=== PATIENT | male | born 1950 | race Caucasian/White ===

== ENCOUNTER 2019-09-29 09:31 | Outpatient (CLI) | payer MEDICARE, SELFPAY ==
[2019-09-29 09:44] LABS: Basophils Absolute Auto 0.01 K/mm3 (0.00-0.10); Basophils Percent Auto 0.2 % (0.0-1.0); Eosinophils Absolute Auto 0.03 K/mm3 (0.02-0.50); Eosinophils Percent Auto 0.7 % (1.0-6.0); Hematocrit 37.3 % (37.0-46.0); Hemoglobin 13.2 g/dL (12.4-15.3); Immature Granulocyte Absolute 0.02 K/mm3 (0.00-0.00); Immature Granulocyte Percent A 0.4 % (0.0-0.0); Lymphocytes Absolute Auto 1.16 K/mm3 (1.10-4.50); Lymphocytes Percent Auto 26.1 % (18.0-42.0); Mean Corpuscular HGB Conc 35.4 g/dL (32.0-36.0); Mean Corpuscular Hemoglobin 34.6 pg (27.0-31.0); Mean Corpuscular Volume 97.9 fL (78.0-102.0); Mean Platelet Volume 9.6 fl (8.7-11.0); Monocytes Absolute Auto 0.63 K/mm3 (0.10-0.90); Monocytes Percent Auto 14.2 % (2.0-11.0); Neutrophils Absolute Auto 2.6 K/mm3 (1.7-7.2); Neutrophils Percent Auto 58.4 % (50.0-70.0); Platelet Count Result 145 K/mm3 (150-420); Red Blood Count 3.81 M/mm3 (4.70-6.10); Red Cell Distribution Width 13.3 % (11.6-14.4); White Blood Count 4.5 K/mm3 (4.8-10.8)
[2019-09-29 10:47] LABS: Erythrocyte Sedimentation Rate 28 mm/hr (0-20)
[2019-09-29 10:53] LABS: Alanine Aminotransferase 55 U/L (16-63); Albumin Level 4.3 g/dL (3.4-5.0); Alkaline Phosphatase 92 U/L (46-116); Anion Gap 13.3 mmol/L (7-16); Aspartate Amino Transferase 38 U/L (15-37); Bilirubin,Total 1.2 mg/dL (0.00-1.00); Blood Urea Nitrogen 14 mg/dL (7-18); Calcium 9.2 mg/dL (8.5-10.1); Carbon Dioxide 30 mmol/L (21-32); Chloride 101 mmol/L (98-108); Estimated Glomerular Filt Rate > 60; Glucose 99 mg/dL (70-99); Osmolality Calculated 290 mOsm/kg (285-295); Potassium 4.3 mmol/L (3.5-5.1); Sodium 140 mmol/L (136-145)
[2019-09-29 11:04] LABS: CRP < 0.2 mg/dL (0.0-0.9)
== END 2019-09-29 09:32 | disposition home or self-care (01) ==
PROVIDERS: PCP Internal Medicine
DX: M19.90 Unspecified osteoarthritis, unspecified site (principal); Z79.899 Other long term (current) drug therapy; M10.9 Gout, unspecified
CPT/HCPCS: 36415; 80053; 85025; 85652; 86140

== ENCOUNTER 2019-12-01 10:34 | Outpatient (CLI) | payer MEDICARE, SELFPAY ==
[2019-12-01 10:47] LABS: Basophils Absolute Auto 0.01 K/mm3 (0.00-0.10); Basophils Percent Auto 0.2 % (0.0-1.0); Eosinophils Absolute Auto 0.07 K/mm3 (0.02-0.50); Eosinophils Percent Auto 1.1 % (1.0-6.0); Hematocrit 37.4 % (37.0-46.0); Immature Granulocyte Absolute 0.03 K/mm3 (0.00-0.00); Immature Granulocyte Percent A 0.5 % (0.0-0.0); Lymphocytes Absolute Auto 0.68 K/mm3 (1.10-4.50); Lymphocytes Percent Auto 10.8 % (18.0-42.0); Mean Corpuscular HGB Conc 34.8 g/dL (32.0-36.0); Mean Corpuscular Hemoglobin 34.2 pg (27.0-31.0); Mean Corpuscular Volume 98.4 fL (78.0-102.0); Mean Platelet Volume 9.5 fl (8.7-11.0); Monocytes Absolute Auto 0.79 K/mm3 (0.10-0.90); Monocytes Percent Auto 12.6 % (2.0-11.0); Neutrophils Absolute Auto 4.7 K/mm3 (1.7-7.2); Neutrophils Percent Auto 74.8 % (50.0-70.0); Platelet Count Result 144 K/mm3 (150-420); Red Cell Distribution Width 12.4 % (11.6-14.4); White Blood Count 6.3 K/mm3 (4.8-10.8)
[2019-12-01 11:33] LABS: Alanine Aminotransferase 54 U/L (16-63); Albumin Level 3.8 g/dL (3.4-5.0); Alkaline Phosphatase 119 U/L (46-116); Anion Gap 9.4 mmol/L (7-16); Aspartate Amino Transferase 46 U/L (15-37); Blood Urea Nitrogen 13 mg/dL (7-18); CRP 1.9 mg/dL (0.0-0.9); Calcium 8.9 mg/dL (8.5-10.1); Carbon Dioxide 31 mmol/L (21-32); Chloride 99 mmol/L (98-108); Estimated Glomerular Filt Rate > 60; Glucose 103 mg/dL (70-99); Osmolality Calculated 280 mOsm/kg (285-295); Potassium 4.4 mmol/L (3.5-5.1); Sodium 135 mmol/L (136-145); Total Protein 6.8 g/dL (6.4-8.2); Uric Acid 4.4 mg/dL (3.5-7.2)
[2019-12-01 11:46] LABS: Erythrocyte Sedimentation Rate 50 mm/hr (0-20)
== END 2019-12-01 10:35 | disposition home or self-care (01) ==
LOC: CHSLAB 10:37
PROVIDERS: PCP Internal Medicine
DX: M19.90 Unspecified osteoarthritis, unspecified site (principal); Z79.899 Other long term (current) drug therapy; M10.9 Gout, unspecified
CPT/HCPCS: 36415; 80053; 84550; 85025; 85652; 86140

== ENCOUNTER 2019-12-30 09:10 | Outpatient (CLI) | payer MEDICARE, SELFPAY ==
[2019-12-30 11:02] LABS: Alanine Aminotransferase 48 U/L (16-63); Albumin Level 3.8 g/dL (3.4-5.0); Alkaline Phosphatase 128 U/L (46-116); Anion Gap 10 mmol/L (8-16); Aspartate Amino Transferase 32 U/L (15-37); Bilirubin,Total 1.1 mg/dL (0.00-1.00); Blood Urea Nitrogen 15 mg/dL (7-18); Calcium 9.3 mg/dL (8.5-10.1); Carbon Dioxide 28 mmol/L (21-32); Chloride 101 mmol/L (98-108); Estimated Glomerular Filt Rate > 60; Glucose 96 mg/dL (70-99); Osmolality Calculated 288 mOsm/kg (285-295); Potassium 4.1 mmol/L (3.5-5.1); Sodium 139 mmol/L (136-145); Total Protein 7.1 g/dL (6.4-8.2)
== END 2019-12-30 09:11 | disposition home or self-care (01) ==
LOC: CHSLAB 09:14
PROVIDERS: PCP Internal Medicine
DX: R74.8 Abnormal levels of other serum enzymes (principal)
CPT/HCPCS: 36415; 80053

== ENCOUNTER 2020-03-10 13:53 | Outpatient (CLI) | payer MEDICARE, SELFPAY ==
[2020-03-10 14:06] LABS: Basophils Absolute Auto 0.01 K/mm3 (0.00-0.10); Basophils Percent Auto 0.2 % (0.0-1.0); Eosinophils Absolute Auto 0.04 K/mm3 (0.02-0.50); Eosinophils Percent Auto 0.8 % (1.0-6.0); Hemoglobin 12.6 g/dL (12.4-15.3); Immature Granulocyte Absolute 0.02 K/mm3 (0.00-0.00); Immature Granulocyte Percent A 0.4 % (0.0-0.0); Lymphocytes Absolute Auto 1.37 K/mm3 (1.10-4.50); Lymphocytes Percent Auto 28.7 % (18.0-42.0); Mean Corpuscular Volume 94.2 fL (78.0-102.0); Mean Platelet Volume 9.5 fl (8.7-11.0); Monocytes Absolute Auto 0.64 K/mm3 (0.10-0.90); Monocytes Percent Auto 13.4 % (2.0-11.0); Neutrophils Absolute Auto 2.7 K/mm3 (1.7-7.2); Neutrophils Percent Auto 56.5 % (50.0-70.0); Platelet Count Result 150 K/mm3 (150-420); Red Blood Count 3.82 M/mm3 (4.70-6.10); Red Cell Distribution Width 12.4 % (11.6-14.4); White Blood Count 4.8 K/mm3 (4.8-10.8)
[2020-03-10 14:35] LABS: Alanine Aminotransferase 41 U/L (16-63); Alkaline Phosphatase 109 U/L (46-116); Anion Gap 8 mmol/L (8-16); Aspartate Amino Transferase 28 U/L (15-37); Bilirubin,Total 0.8 mg/dL (0.00-1.00); Blood Urea Nitrogen 17 mg/dL (7-18); Calcium 8.9 mg/dL (8.5-10.1); Carbon Dioxide 27 mmol/L (21-32); Chloride 103 mmol/L (98-108); Estimated Glomerular Filt Rate > 60; Glucose 114 mg/dL (70-99); Osmolality Calculated 288 mOsm/kg (285-295); Potassium 3.8 mmol/L (3.5-5.1); Sodium 138 mmol/L (136-145); Total Protein 6.8 g/dL (6.4-8.2); Uric Acid 4.7 mg/dL (3.5-7.2)
[2020-03-10 14:44] LABS: CRP < 0.2 mg/dL (0.0-0.9)
[2020-03-10 15:14] LABS: Erythrocyte Sedimentation Rate 33 mm/hr (0-20)
== END 2020-03-10 13:54 | disposition home or self-care (01) ==
LOC: CHSLAB 13:57
PROVIDERS: PCP Internal Medicine; Visit Provider Registered Nurse
DX: M19.90 Unspecified osteoarthritis, unspecified site (principal); Z79.899 Other long term (current) drug therapy; M10.9 Gout, unspecified
CPT/HCPCS: 36415; 80053; 84550; 85025; 85652; 86140

== ENCOUNTER 2020-04-04 11:05 | Outpatient (CLI) | payer MEDICARE, SELFPAY ==
[2020-04-05 14:04] LABS: SARS-CoV-2 RNA PCR Positive
== END 2020-04-04 11:06 | disposition home or self-care (01) ==
LOC: CHSLAB 11:09
PROVIDERS: PCP Internal Medicine; Visit Provider Internal Medicine
DX: U07.1 COVID-19 (principal)
CPT/HCPCS: 87635; C9803; U0003

== ENCOUNTER 2020-05-30 09:46 | Outpatient (CLI) | payer MEDICARE, SELFPAY ==
[2020-05-30 10:05] LABS: Basophils Absolute Auto 0.01 K/mm3 (0.00-0.10); Basophils Percent Auto 0.2 % (0.0-1.0); Eosinophils Absolute Auto 0.06 K/mm3 (0.02-0.50); Eosinophils Percent Auto 1.3 % (1.0-6.0); Hematocrit 37.5 % (37.0-46.0); Hemoglobin 12.7 g/dL (12.4-15.3); Immature Granulocyte Absolute 0.03 K/mm3 (0.00-0.00); Immature Granulocyte Percent A 0.7 % (0.0-0.0); Lymphocytes Absolute Auto 1.06 K/mm3 (1.10-4.50); Lymphocytes Percent Auto 23.1 % (18.0-42.0); Mean Corpuscular HGB Conc 33.9 g/dL (32.0-36.0); Mean Corpuscular Hemoglobin 32.1 pg (27.0-31.0); Mean Corpuscular Volume 94.7 fL (78.0-102.0); Mean Platelet Volume 9.3 fl (8.7-11.0); Monocytes Absolute Auto 0.62 K/mm3 (0.10-0.90); Monocytes Percent Auto 13.5 % (2.0-11.0); Neutrophils Absolute Auto 2.8 K/mm3 (1.7-7.2); Neutrophils Percent Auto 61.2 % (50.0-70.0); Platelet Count Result 146 K/mm3 (150-420); Red Blood Count 3.96 M/mm3 (4.70-6.10); Red Cell Distribution Width 13.4 % (11.6-14.4); White Blood Count 4.6 K/mm3 (4.8-10.8)
[2020-05-30 11:04] LABS: Alanine Aminotransferase 63 U/L (16-63); Albumin Level 4.2 g/dL (3.4-5.0); Alkaline Phosphatase 97 U/L (46-116); Anion Gap 7 mmol/L (8-16); Aspartate Amino Transferase 29 U/L (15-37); Bilirubin,Total 1.3 mg/dL (0.00-1.00); Blood Urea Nitrogen 19 mg/dL (7-18); Calcium 9.1 mg/dL (8.5-10.1); Carbon Dioxide 30 mmol/L (21-32); Chloride 101 mmol/L (98-108); Estimated Glomerular Filt Rate > 60; Glucose 103 mg/dL (70-99); Osmolality Calculated 288 mOsm/kg (285-295); Potassium 4.4 mmol/L (3.5-5.1); Sodium 138 mmol/L (136-145); Total Protein 7.3 g/dL (6.4-8.2); Uric Acid 4.6 mg/dL (3.5-7.2)
[2020-05-30 11:08] LABS: Erythrocyte Sedimentation Rate 25 mm/hr (0-20)
[2020-05-30 11:12] LABS: CRP < 0.2 mg/dL (0.0-0.9)
== END 2020-05-30 09:47 | disposition home or self-care (01) ==
LOC: CHSLAB 09:48
PROVIDERS: PCP Internal Medicine; Visit Provider Registered Nurse
DX: M19.90 Unspecified osteoarthritis, unspecified site (principal); Z79.899 Other long term (current) drug therapy; R61 Generalized hyperhidrosis; R53.83 Other fatigue
CPT/HCPCS: 36415; 80053; 84550; 85025; 85652; 86140

== ENCOUNTER 2020-11-14 14:56 | Outpatient (CLI) | payer MEDICARE, SELFPAY ==
[2020-11-14 15:07] LABS: Basophils Absolute Auto 0.01 K/mm3 (0.00-0.10); Basophils Percent Auto 0.2 % (0.0-1.0); Eosinophils Absolute Auto 0.06 K/mm3 (0.02-0.50); Eosinophils Percent Auto 1.2 % (1.0-6.0); Hematocrit 35.9 % (37.0-46.0); Hemoglobin 12.7 g/dL (12.4-15.3); Immature Granulocyte Absolute 0.03 K/mm3 (0.00-0.00); Immature Granulocyte Percent A 0.6 % (0.0-0.0); Lymphocytes Absolute Auto 1.44 K/mm3 (1.10-4.50); Lymphocytes Percent Auto 29.1 % (18.0-42.0); Mean Corpuscular HGB Conc 35.4 g/dL (32.0-36.0); Mean Corpuscular Hemoglobin 33.5 pg (27.0-31.0); Mean Corpuscular Volume 94.7 fL (78.0-102.0); Mean Platelet Volume 9.7 fl (8.7-11.0); Monocytes Absolute Auto 0.74 K/mm3 (0.10-0.90); Monocytes Percent Auto 14.9 % (2.0-11.0); Neutrophils Absolute Auto 2.7 K/mm3 (1.7-7.2); Platelet Count Result 144 K/mm3 (150-420); Red Blood Count 3.79 M/mm3 (4.70-6.10); Red Cell Distribution Width 11.8 % (11.6-14.4)
[2020-11-14 16:39] LABS: Alanine Aminotransferase 41 U/L (16-63); Albumin Level 3.9 g/dL (3.4-5.0); Alkaline Phosphatase 104 U/L (46-116); Anion Gap 10 mmol/L (8-16); Aspartate Amino Transferase 27 U/L (15-37); Bilirubin,Total 0.8 mg/dL (0.00-1.00); Blood Urea Nitrogen 20 mg/dL (7-18); Calcium 9.2 mg/dL (8.5-10.1); Carbon Dioxide 29 mmol/L (21-32); Chloride 101 mmol/L (98-108); Estimated Glomerular Filt Rate > 60; Glucose 97 mg/dL (70-99); Osmolality Calculated 292 mOsm/kg (285-295); Potassium 3.7 mmol/L (3.5-5.1); Sodium 140 mmol/L (136-145); Total Protein 6.8 g/dL (6.4-8.2); Uric Acid 4.6 mg/dL (3.5-7.2)
[2020-11-14 16:50] LABS: CRP < 0.2 mg/dL (0.0-0.9)
== END 2020-11-14 14:57 | disposition home or self-care (01) ==
LOC: CHSLAB 14:59
PROVIDERS: PCP Internal Medicine; Visit Provider Internal Medicine
DX: D61.818 Other pancytopenia (principal); M10.9 Gout, unspecified
CPT/HCPCS: 36415; 80053; 84550; 85025; 86140

== ENCOUNTER 2020-12-12 10:11 | Outpatient (CLI) | payer MEDICARE, SELFPAY ==
[2020-12-12 10:25] LABS: Basophils Absolute Auto 0.01 K/mm3 (0.00-0.10); Basophils Percent Auto 0.2 % (0.0-1.0); Eosinophils Absolute Auto 0.06 K/mm3 (0.02-0.50); Eosinophils Percent Auto 1.3 % (1.0-6.0); Hematocrit 39.6 % (37.0-46.0); Hemoglobin 13.8 g/dL (12.4-15.3); Immature Granulocyte Absolute 0.02 K/mm3 (0.00-0.00); Immature Granulocyte Percent A 0.4 % (0.0-0.0); Lymphocytes Absolute Auto 1.17 K/mm3 (1.10-4.50); Lymphocytes Percent Auto 25.4 % (18.0-42.0); Mean Corpuscular HGB Conc 34.8 g/dL (32.0-36.0); Mean Corpuscular Hemoglobin 33.1 pg (27.0-31.0); Mean Platelet Volume 9.6 fl (8.7-11.0); Monocytes Absolute Auto 0.68 K/mm3 (0.10-0.90); Monocytes Percent Auto 14.8 % (2.0-11.0); Neutrophils Absolute Auto 2.7 K/mm3 (1.7-7.2); Neutrophils Percent Auto 57.9 % (50.0-70.0); Platelet Count Result 154 K/mm3 (150-420); Red Blood Count 4.17 M/mm3 (4.70-6.10); White Blood Count 4.6 K/mm3 (4.8-10.8)
== END 2020-12-12 10:12 | disposition home or self-care (01) ==
LOC: CHSLAB 10:14
PROVIDERS: PCP Internal Medicine; Visit Provider Internal Medicine
DX: D64.9 Anemia, unspecified (principal)
CPT/HCPCS: 36415; 85025

== ENCOUNTER 2021-01-09 09:27 | Outpatient (CLI) | payer MEDICARE, SELFPAY ==
[2021-01-09 09:41] LABS: Basophils Absolute Auto 0.01 K/mm3 (0.00-0.10); Basophils Percent Auto 0.2 % (0.0-1.0); Eosinophils Absolute Auto 0.03 K/mm3 (0.02-0.50); Eosinophils Percent Auto 0.5 % (1.0-6.0); Hematocrit 39.5 % (37.0-46.0); Hemoglobin 13.6 g/dL (12.4-15.3); Immature Granulocyte Absolute 0.02 K/mm3 (0.00-0.00); Immature Granulocyte Percent A 0.4 % (0.0-0.0); Immature Platelet Fraction Pct 2.3 % (1.0-7.0); Lymphocytes Absolute Auto 1.12 K/mm3 (1.10-4.50); Lymphocytes Percent Auto 19.7 % (18.0-42.0); Mean Corpuscular HGB Conc 34.4 g/dL (32.0-36.0); Mean Corpuscular Hemoglobin 32.3 pg (27.0-31.0); Mean Corpuscular Volume 93.8 fL (78.0-102.0); Mean Platelet Volume 9.3 fl (8.7-11.0); Monocytes Absolute Auto 0.72 K/mm3 (0.10-0.90); Monocytes Percent Auto 12.7 % (2.0-11.0); Neutrophils Absolute Auto 3.8 K/mm3 (1.7-7.2); Neutrophils Percent Auto 66.5 % (50.0-70.0); Platelet Count Result 153 K/mm3 (150-420); Red Blood Count 4.21 M/mm3 (4.70-6.10); Red Cell Distribution Width 11.9 % (11.6-14.4); White Blood Count 5.7 K/mm3 (4.8-10.8)
[2021-01-09 11:02] LABS: CRP < 0.2 mg/dL (0.0-0.9)
== END 2021-01-09 09:28 | disposition home or self-care (01) ==
LOC: CHSLAB 09:30
PROVIDERS: PCP Internal Medicine; Visit Provider Internal Medicine
DX: D72.819 Decreased white blood cell count, unspecified (principal)
CPT/HCPCS: 36415; 85025; 85055; 86140

== ENCOUNTER 2021-10-11 13:49 | Outpatient (CLI) | payer MEDICARE, SELFPAY ==
[2021-10-11 14:14] LABS: Estimated Glomerular Filt Rate > 60
== END 2021-10-11 13:50 | disposition home or self-care (01) ==
LOC: CHSLAB 13:55
PROVIDERS: PCP Internal Medicine; Visit Provider Nurse Practitioner Family
DX: R10.9 Unspecified abdominal pain (principal); K42.9 Umbilical hernia without obstruction or gangrene
CPT/HCPCS: 99199

== ENCOUNTER 2021-10-12 07:24 | Outpatient (CLI) | payer MEDICARE, SELFPAY ==
--- NOTE | ~2021-10-12 | CT_ITS ---
EXAMINATION: CT abdomen pelvis w con DATE: 10/12/2021 08:24 INDICATION: Abdominal discomfort and outpouching at the umbilical area TECHNIQUE: Computed tomography (CT) of the abdomen and pelvis was performed with 100 mL Omnipaque-300 intravenous contrast. Automated exposure control and iterative reconstruction technique were employe d. The dose-length product was 1027.24 mGy-cm. COMPARISON: 12/26/2017 FINDINGS: Calcified pleural plaques and mild subpleural fibrosis at the bilateral lung bases suggesting prior a sbestos exposure. Unchanged 4 mm granuloma in the left lower lobe. Heart size is normal. Atherosclero tic coronary artery calcification. Liver, gallbladder, spleen, pancreas, bilateral kidneys and left a drenal gland are normal. 10 mm left adrenal nodule unchanged since the prior study which be most cons istent with adenoma. Small fat-containing umbilical hernia. There is moderate colonic diverticulosis with a sigmoid and descending colon predominance. There is no adjacent inflammatory change to suggest diverticulitis. Small bowel is normal with no obstruction. Tiny calcified appendicolith within the normal appendix with no periappendiceal inflammatory stranding to suggest acute appendicitis. Diffuse wall thickening the bladder likely related to chronic outlet obstruction from the enlarged prostate which measures 5.9 x 4.3 cm. Couple punctate 1 mm calcifications potentially bladder stones along the inferior wall of the bladder. There is calcified atherosclerosis of the aorta and many of the other arteries. No free intraperitoneal gas or fluid. No pathologically enlarged abdominal or pelvic lympha denopathy. Unchanged small lucent hemangioma at T9. Mild lumbar and moderate lower thoracic spondylos is. Chronic Modic type III sclerotic endplate changes at L5-S1. IMPRESSION: 1. No acute intra-abdominal/pelvic process. 2. Small, previously tiny fat-containing umbilical hernia. 3. Bilateral calcified pleural plaques with minimal subpleural fibrosis suggesting prior asbestos exp osure. 4. Moderate diverticulosis. 5. Diffuse wall thickening of the bladder likely related to chronic outlet obstruction from the enlar ged prostate. Reviewed, dictated and finalized at location B. IMPRESSION: 1. No acute intra-abdominal/pelvic process. 2. Small, previously tiny fat-containing umbilical hernia. 3. Bilateral calcified pleural plaques with minimal subpleural fibrosis suggest ing prior asbestos exposure. 4. Moderate diverticulosis. 5. Diffuse wall thickening of the bladder likely related to chronic outlet obst ruction from the enlarged prostate.
== END 2021-10-12 07:25 | disposition home or self-care (01) ==
LOC: CHSIMG 07:26
PROVIDERS: PCP Internal Medicine; Visit Provider Nurse Practitioner Family
DX: R10.9 Unspecified abdominal pain (principal); K42.9 Umbilical hernia without obstruction or gangrene
CPT/HCPCS: 74177; Q9967

== ENCOUNTER 2021-11-05 10:01 | Outpatient (CLI) | payer MEDICARE, SELFPAY ==
[2021-11-05 10:27] LABS: Anion Gap 6 mmol/L (8-16); Blood Urea Nitrogen 16 mg/dL (7-18); Calcium 9.3 mg/dL (8.5-10.1); Carbon Dioxide 29 mmol/L (21-32); Chloride 100 mmol/L (98-108); Estimated Glomerular Filt Rate > 60; Glucose 98 mg/dL (70-99); Osmolality Calculated 281 mOsm/kg (285-295); Sodium 135 mmol/L (136-145)
== END 2021-11-05 10:02 | disposition home or self-care (01) ==
LOC: CHSLAB 10:03
PROVIDERS: PCP Internal Medicine; Visit Provider Anesthesiology
DX: K42.9 Umbilical hernia without obstruction or gangrene (principal); I10 Essential (primary) hypertension
CPT/HCPCS: 36415; 80048

== ENCOUNTER 2021-11-14 03:04 | Day surgery (SDC) | payer MEDICARE, SELFPAY ==
--- NOTE | 2021-11-02 13:45 | PC.NURSE ---
Report to the Outpatient Waiting Room, entrance under the green pavilion located off [facility], at time _0930 on date __11/14/21 . OR Time: __1130 . - You and your visitor will be asked a series of questions to screen for COVID 19 for your protection. - Only one visitor is allowed at this time. - The patient visitor is requested to leave or wait in car when not with patient. - A mask is required within the hospital. Patients may have clear liquids (water, carbonated beverages, clear teas, apple juice) until 3 hours prior to surgery with a maximum of 20 ounces. - No food from midnight until time of surgery - Infants may have breast milk until 4 hours before surgery, infant formula 6 hours prior to surgery. - Children will be allowed to drink immediately following surgery. If applicable, please bring a bottle or sippy cup to assist with drinking. Juice, water, soda, and popsicles are readily available. For infants on formula, please bring formula the day of surgery. Pacifiers are allowed. Take the following medications with a SIP of water the morning of surgery: ____NONE Medications to discontinue per physician MULTIVITMAIN 3 DAYS PRE OP Date to take last dose__11/10/21 Please no make-up, nail maori, hairspray, perfume, deodorant, or body powder the day of surgery. No jewelry (including any body piercings) or valuables the day of surgery, leave them at home. Please take a shower or bath the night before, or the morning of, surgery with an antibacterial soap. Wear comfortable, loose fitting clothing. Children are encouraged to wear pajamas. - Jewelry must be removed prior to entering the operating room. Rings and piercings that are not removed may be cut off. - The hospital will not accept responsibility for valuables. HIBICLENS SHOWER MORNING OF SURGERY - Please leave all valuables, including medications, at home the day of surgery. If you are going home after surgery, a licensed motor coach driver must drive you home. - NO public transportation without another adult. - We recommend that an adult stay with you for 24 hours following discharge. - We also recommend that you do not drive, make important decision, drink alcoholic beverages, or take any drugs that were not prescribed by your health care provider for at least 24 hours after your discharge time. For Pediatric surgeries, we recommend two adults accompany the child home (only one inside the building at this time). Follow any additional instructions given to you from your surgeon. If you or anyone in your household have experienced Covid symptoms in the past week, please notify your surgeon or the nurse liaison at the phone number below for possible testing. Telephone instructions given to _PATIENT and asked if any additional questions and then verbalized understanding. Patient advised to call surgeon office or pre surgery nurse liaison [phone] if any additional questions.
[2021-11-02 13:51] VITALS: BMI 31.0
[2021-11-14] MEDS: ACETAMINOPHEN 500 MG TABLET 1000 MG PO (08:31)
--- NOTE | 2021-11-14 08:42 | WPDHPUPDATE1 ---
History and Physical Update Update Date/Time: 11/14/21 08:42 History and Physical has been reviewed, including an updated exam of the patient. There are NO changes in the patient's condition. Risks, benefits, and alternatives have been discussed and questions answered. Patient agrees to proceed with procedure.
--- NOTE | 2021-11-14 08:54 | WPDHPUPDATE1 ---
History and Physical Update Update Date/Time: 11/14/21 08:54 History and Physical has been reviewed, including an updated exam of the patient. There are NO changes in the patient's condition. Risks, benefits, and alternatives have been discussed and questions answered. Patient agrees to proceed with procedure.
[2021-11-14] MEDS: LACTATED RINGERS 1,000 ML 30 ML IV CONT (09:18)
[2021-11-14] MEDS: KETOROLAC 15 MG/ML VIAL (*BKC) IV PUSH (09:19)
[2021-11-14 09:20] VITALS: BP 140/78; PULSE 63; RESP 16; TEMP 36.4; O2SAT 100
[2021-11-14] MEDS: ceFAZolin 2 GM/D5W 50 ML 2 GM/50 ML BAG IVPB (10:04)
[2021-11-14] MEDS: LIDO 1%/EPINEPHRINE/PF 1:200,000 30 ML VIAL XX (10:31)
[2021-11-14 10:58] VITALS: BP 104/59; PULSE 61; RESP 16; O2SAT 97
--- NOTE | 2021-11-14 10:59 | W.PM.PROC2 ---
Procedure Note - Detailed Date of Procedure 11/14/21 Pre-op Diagnosis Umbilical Hernia Post-op Diagnosis Same Procedure Performed Umbilical hernia repair with 4.[address] underlay patch Surgeon Fracisco Machado MD Implementation Project Coordinator Chidi ESQUIVEL Anesthesia General (G IV S) and Local (1% lidocaine with epinephrine) Indications Patient has a bulge at the upper margin of his umbilicus that has been getting bigger. It is occasionally painful. He is taken to surgery now for umbilical hernia repair. Findings Patient had a 1 cm defect Description of Procedure Patient was checked in the preoperative holding area. He was then taken to surgery and anesthesia was introduced. The abdomen was prepped and draped. The proposed incision was marked along the upper margin of the umbilicus. Local anesthetic was infiltrated into the area of the anticipated incision as well as in the subcutaneous tissues. Incision was made dissection was carried down through the subcutaneous. The hernia sac was seen easily. I dissected the umbilical skin free from the hernia sac and then dissected around the hernia sac circumferentially down to the neck of the hernia. I infiltrated additional local into the neck of the hernia and the fascia around the hernia defect. I then used the cautery in amputated the hernia sac and its contents. This tissue was discarded. I placed a finger in the defect and felt no additional hernias in the area. I had to slightly enlarge the hernia defect to place the mesh in the abdomen. A 4.[address] hernia patch was chosen. It was placed in the hernia defect and position symmetrically. Cranial and caudal transfascial sutures of 0 Ethibond were then placed. These were placed in such a way that when tied they would advance the edges of the hernia defect towards 1 another. This had the desired effect. I then cut the straps to the Ventralex ST mesh. The hernia defect itself was closed with vertical mattress sutures of 0 Ethibond. Each of these stitches included a bit of mesh as well. I then infiltrated additional local all around the area the repair. The umbilical skin was sutured to the fascia with 3-0 Vicryl. Some subcutaneous 3-0 Vicryl sutures were placed. The skin was loosely approximated with subcuticular 4-0 Vicryl skin sutures. The skin was then finally closed with a running 4-0 Monocryl skin suture. The wound was dressed with Exofin surgical adhesive. The patient was awakened and taken to recovery in good condition. Sponge and needle counts were correct x2. Estimated Blood Loss -5 Drains No Packing No Pathology None sent Complications No immediate complications Condition Stable Disposition Same day [facility] Billing Surgery - Charge Forward: Surgery Billing (Repair umbilical hernia with mesh)
[2021-11-14 11:25] VITALS: BP 121/72; PULSE 65; RESP 16
[2021-11-14 11:38] VITALS: BP 128/69; PULSE 62; RESP 18
== END 2021-11-14 11:43 | disposition home or self-care (01) ==
PROVIDERS: PCP Internal Medicine; Visit Provider Surgery
PROC: (CPT 49585; principal; 2021-11-14 10:00)
DX: K42.9 Umbilical hernia without obstruction or gangrene (principal); I10 Essential (primary) hypertension; I25.2 Old myocardial infarction; M10.9 Gout, unspecified
CPT/HCPCS: 49585; A9270; C1781; J0690; J1100; J1885; J2250; J2405; J2704; J3010; J7120

== ENCOUNTER 2022-01-04 09:10 | Outpatient (CLI) | payer MEDICARE, SELFPAY ==
--- NOTE | ~2022-01-04 | CT_ITS ---
EXAMINATION: CT chest high resolution wo nv DATE: 01/04/2022 10:22 INDICATION: Prior smoker, asbestos exposure. TECHNIQUE: Computed tomography (CT) of the chest was performed without intravenous contrast. The dose -length product (DLP) was 336.80 mGy-cm. Automated exposure control and iterative reconstruction tech Rainbowque were employed. COMPARISON: None FINDINGS: There are bilateral calcified pleural plaques, consistent with prior asbestos exposure. The re is mild emphysema. The lungs are free of acute opacities. No pleural effusion or pneumothorax. No pathologically enlarged thoracic lymph nodes are identified. The heart size is normal. There is calci fied coronary artery atherosclerosis. There is moderate thoracic spondylosis. IMPRESSION: 1. Bilateral calcified pleural plaques, consistent with prior asbestos exposure. Reviewed, dictated and finalized at location A. IMPRESSION: 1. Bilateral calcified pleural plaques, consistent with prior asbestos exposure .
--- NOTE | 2022-01-09 12:18 | WPDPFTINT ---
PFT Procedure Performed PFT Procedure Performed Spirometry with Pre/Post Bronchodilator Plethysmography (Lung Vol) Diffusing Cap (DLCO) Flow Vol Loop PFT Interpretation This is a pulmonary function test with pre and post-bronchodilator spirometry, plethysmography and diffusing capacity. The test was performed and results interpreted in accordance with the 2019 and 2005 ATS/ERS Task Force guidelines respectively using the Global Lung Function Initiative-2012 reference equations. Patient demonstrated good effort and cooperation. Reproducibility criteria were met. The quality of the pre bronchodilator spirometry maneuver was Grade A and post bronchodilator spirometry maneuver was Grade A. Findings: Spirometry: The contour the inspiratory and expiratory flow tracing are normal. The pre bronchodilator FVC is 4.22 L, 105% predicted. The pre bronchodilator FEV1 is 2.70 L, 89% predicted. The FEV1: FVC ratio was 64%. The post bronchodilator FVC is 4.28 L, representing 1% increase. The post bronchodilator FEV1 is 2.87 L, representing a 6% increase. The post bronchodilator FEV1: FVC ratio is 67%. Plethysmography: The total lung capacity is 7.21 L, 106% predicted. The functional residual capacity is 4.08 L, 113% predicted. The residual volume is 2.90 L, 119% predicted. Diffusion capacity: The diffusing capacity unadjusted for hemoglobin and carboxyhemoglobin is 21.0, 83% predicted. The diffusing capacity adjusted for alveolar volume is 3.92, 100% predicted. Impression: The spirometry is normal without evidence of an obstructive abnormality. There is no significant improvement after inhaling a single dose of albuterol. The lung volumes are normal. The diffusing capacity is normal. There are no prior studies for comparison
== END 2022-01-04 09:11 | disposition home or self-care (01) ==
LOC: ANHPFT 09:13
PROVIDERS: PCP Internal Medicine; Visit Provider Internal Medicine Pulmonary Disease
DX: R06.00 Dyspnea, unspecified (principal); Z77.090 Contact with and (suspected) exposure to asbestos; R91.8 Other nonspecific abnormal finding of lung field
CPT/HCPCS: 71250; 94060; 94726; 94729

== ENCOUNTER 2022-08-07 13:06 | Outpatient (CLI) | payer MEDICARE, SELFPAY ==
--- NOTE | ~2022-08-07 | XR_ITS ---
XR hand RT min 3V DATE: 08/07/2022 13:49 INDICATION: Right hand and wrist pain, swelling TECHNIQUE: 3 views COMPARISON: 01/27/2019 right hand FINDINGS: There is polyarticular osteoarthritis, quite prominent at the first carpometacarpal and fir st through third metacarpophalangeal joints and involving multiple interphalangeal joints, particular ly distal. There is degenerative spurring at the radial ulnar joint. Probable old fifth metacarpal shaft fracture. No recent fracture or dislocation, periosteal reaction or bone destruction. IMPRESSION: Polyarticular osteoarthritis Reviewed, dictated and finalized at location B.
--- NOTE | ~2022-08-07 | XR_ITS ---
XR wrist RT min 3V DATE: 08/07/2022 13:50 INDICATION: Right wrist pain, swelling TECHNIQUE: 4 views COMPARISON: 01/27/2019 FINDINGS: There is spurring at the radial ulnar joint. There is prominent osteophytic change at the f irst carpometacarpal joint and lesser osteoarthritic change at the triscaphe joint. No fracture, dislocation, periosteal reaction or bone destruction. IMPRESSION: Polyarticular osteoarthritis Reviewed, dictated and finalized at location B.
[2022-08-07 13:28] LABS: Basophils Absolute Auto 0.01 K/mm3 (0.00-0.10); Basophils Percent Auto 0.2 % (0.0-1.0); Eosinophils Absolute Auto 0.03 K/mm3 (0.02-0.50); Eosinophils Percent Auto 0.6 % (1.0-6.0); Hematocrit 37.4 % (37.0-46.0); Hemoglobin 13.1 g/dL (12.4-15.3); Immature Granulocyte Absolute 0.03 K/mm3 (0.00-0.00); Immature Granulocyte Percent A 0.6 % (0.0-0.0); Lymphocytes Absolute Auto 1.18 K/mm3 (1.10-4.50); Lymphocytes Percent Auto 22.4 % (18.0-42.0); Mean Corpuscular Hemoglobin 32.1 pg (27.0-31.0); Mean Corpuscular Volume 91.7 fL (78.0-102.0); Mean Platelet Volume 9.8 fl (8.7-11.0); Monocytes Absolute Auto 0.73 K/mm3 (0.10-0.90); Monocytes Percent Auto 13.9 % (2.0-11.0); Neutrophils Absolute Auto 3.3 K/mm3 (1.7-7.2); Neutrophils Percent Auto 62.3 % (50.0-70.0); Platelet Count Result 156 K/mm3 (150-420); Red Blood Count 4.08 M/mm3 (4.70-6.10); White Blood Count 5.3 K/mm3 (4.8-10.8)
[2022-08-07 14:04] LABS: Alanine Aminotransferase 37 U/L (16-63); Albumin Level 4.2 g/dL (3.4-5.0); Alkaline Phosphatase 112 U/L (46-116); Anion Gap 9 mmol/L (8-16); Aspartate Amino Transferase 27 U/L (15-37); Bilirubin,Total 1.2 mg/dL (0.00-1.00); Blood Urea Nitrogen 14 mg/dL (7-18); CRP 4.4 mg/dL (0.0-0.9); Calcium 9.6 mg/dL (8.5-10.1); Carbon Dioxide 32 mmol/L (21-32); Chloride 99 mmol/L (98-108); Estimated Glomerular Filt Rate > 60; Glucose 105 mg/dL (70-99); Osmolality Calculated 290 mOsm/kg (285-295); Potassium 3.6 mmol/L (3.5-5.1); Sodium 140 mmol/L (136-145); Total Protein 7.6 g/dL (6.4-8.2); Uric Acid 3.7 mg/dL (3.5-7.2)
[2022-08-08 09:41] LABS: Rheumatoid Factor Screen Negative (Negative)
== END 2022-08-07 13:07 | disposition home or self-care (01) ==
LOC: CHSLAB 13:09
PROVIDERS: PCP Internal Medicine; Visit Provider Nurse Practitioner Family
DX: M79.641 Pain in right hand (principal); M79.89 Other specified soft tissue disorders; M19.042 Primary osteoarthritis, left hand; M19.041 Primary osteoarthritis, right hand
CPT/HCPCS: 36415; 73110; 73130; 80053; 84550; 85025; 86038; 86140; 86430

== ENCOUNTER 2023-07-11 11:30 | Outpatient (CLI) | payer MEDICARE, SELFPAY ==
[2023-07-11 12:23] LABS: Basophils Absolute Auto 0.01 K/mm3 (0.00-0.10); Basophils Percent Auto 0.2 % (0.0-1.0); Eosinophils Absolute Auto 0.04 K/mm3 (0.02-0.50); Eosinophils Percent Auto 0.7 % (1.0-6.0); Hematocrit 39.3 % (37.0-46.0); Hemoglobin 13.1 g/dL (12.4-15.3); Immature Granulocyte Absolute 0.03 K/mm3 (0.00-0.00); Immature Granulocyte Percent A 0.5 % (0.0-0.0); Lymphocytes Absolute Auto 1.22 K/mm3 (1.10-4.50); Mean Corpuscular HGB Conc 33.3 g/dL (32.0-36.0); Mean Corpuscular Hemoglobin 30.9 pg (27.0-31.0); Mean Corpuscular Volume 92.7 fL (78.0-102.0); Mean Platelet Volume 9.9 fl (8.7-11.0); Monocytes Absolute Auto 0.66 K/mm3 (0.10-0.90); Monocytes Percent Auto 11.9 % (2.0-11.0); Neutrophils Absolute Auto 3.6 K/mm3 (1.7-7.2); Neutrophils Percent Auto 64.7 % (50.0-70.0); Platelet Count Result 151 K/mm3 (150-420); Red Blood Count 4.24 M/mm3 (4.70-6.10); Red Cell Distribution Width 12.5 % (11.6-14.4); White Blood Count 5.6 K/mm3 (4.8-10.8)
[2023-07-11 13:08] LABS: Appearance Urine Clear (Clear); Bilirubin Urine Negative (Negative); Blood Urine Negative (Negative); Glucose Urine UA Negative (Negative); Ketones Urine Negative (Negative); Leukocyte Esterase Ur 2+ (Negative); Nitrate Urine Negative (Negative); Protein Urine Negative (Negative); Specific Grav Ur <= 1.005 (1.010-1.020); Urobilinogen Urine 0.2 mg/dL (0.2-1.0)
[2023-07-11 13:14] LABS: Add Urine Microscopic? YES; Color Urine Dark Yellow (Yellow); RBC Urine None seen /hpf (0-2); Squamous Epithelial Cell Urine Rare /hpf (Few)
[2023-07-11 13:15] LABS: Bacteria Urine Trace /hpf
[2023-07-11 13:35] LABS: Alanine Aminotransferase 48 U/L (16-63); Alkaline Phosphatase 104 U/L (46-116); Anion Gap 8 mmol/L (8-16); Aspartate Amino Transferase 32 U/L (15-37); Bilirubin,Total 1.3 mg/dL (0.00-1.00); Blood Urea Nitrogen 14 mg/dL (7-18); Calcium 9.4 mg/dL (8.5-10.1); Carbon Dioxide 32 mmol/L (21-32); Chloride 100 mmol/L (98-108); Estimated Glomerular Filt Rate > 60; Glucose 108 mg/dL (70-99); Osmolality Calculated 291 mOsm/kg (285-295); Potassium 4.1 mmol/L (3.5-5.1); Prostate Specific Antigen 4.9 ng/mL (< OR = 4.0); Sodium 140 mmol/L (136-145); Total Protein 7.3 g/dL (6.4-8.2)
== END 2023-07-11 11:31 | disposition home or self-care (01) ==
LOC: CHSLAB 11:35
PROVIDERS: PCP Internal Medicine; Visit Provider Internal Medicine
DX: R10.31 Right lower quadrant pain (principal); R97.20 Elevated prostate specific antigen [PSA]; K40.90 Unilateral inguinal hernia, without obstruction or gangrene, not specified as recurrent
CPT/HCPCS: 36415; 80053; 81001; 84153; 85025

== ENCOUNTER 2023-07-15 08:52 | Outpatient (CLI) | payer MEDICARE, SELFPAY ==
--- NOTE | ~2023-07-15 | CT_ITS ---
CT of the Abdomen and Pelvis: Indication: Abdominal pain Technique: 2.5 mm axial scans were obtained through the abdomen and pelvis following intravenous adm inistration of 100 cc of Omnipaque 350. Dose reduction technique was used on this scan by utilizing a utomated exposure control and iterative reconstruction technique. The dose-length product (DLP) was 5 72.34 mGy-cm. COMPARISON: 10/12/2021 Findings: Scans through the lung bases demonstrate stable bibasilar pulmonary nodules. The liver, spleen, pancreas, gallbladder, left adrenal gland, and kidneys are within normal limits. S table small right adrenal nodule. There are atherosclerotic calcifications of the aorta. No lymphade nopathy. No bowel obstruction or bowel wall thickening. There is no evidence to suggest acute appendicitis. Images through the pelvis were performed. Questionable urinary bladder wall thickening. Prostate glan d markedly enlarged. Small fat-containing right inguinal hernia noted. No ascites. Stable degenerativ e change, particularly at L5-S1. Impression: Questionable cystitis. Correlate with urinalysis. Markedly enlarged prostate gland. Small fat-containing right inguinal hernia. Stable bibasilar pulmonary nodules and stable small right adrenal nodule. Reviewed, dictated and finalized at location . OR ERP CONSULTANT Impression: Questionable cystitis. Correlate with urinalysis. Markedly enlarged prostate gland. Small fat-containing right inguinal hernia. Stable bibasilar pulmonary nodules and stable small right adrenal nodule.
== END 2023-07-15 08:53 | disposition home or self-care (01) ==
LOC: CHSIMG 08:54
PROVIDERS: PCP Internal Medicine; Visit Provider Internal Medicine
DX: R10.31 Right lower quadrant pain (principal); K40.90 Unilateral inguinal hernia, without obstruction or gangrene, not specified as recurrent; N40.0 Benign prostatic hyperplasia without lower urinary tract symptoms; R91.8 Other nonspecific abnormal finding of lung field; E27.8 Other specified disorders of adrenal gland
CPT/HCPCS: 74177; Q9967

== ENCOUNTER 2023-09-22 12:47 | Outpatient (CLI) | payer MEDICARE, SELFPAY ==
--- NOTE | 2023-09-22 13:01 | ECG_ITS ---
SEE SCANNED COPY FOR CONFIRMED REPORT MTDD
[2023-09-22 13:42] LABS: Basophils Percent Auto 0.2 % (0.2-1.2); Eosinophils Percent Auto 0.8 % (0-4.4); Hemoglobin 12.1 g/dL (14.0-18.0); Immature Granulocyte Absolute 0.02 K/mm3 (0.00-0.031); Immature Granulocyte Percent A 0.4 % (0-0.5); Lymphocytes Absolute Auto 1.38 K/mm3 (0.9-3.2); Mean Corpuscular HGB Conc 34.6 g/dl (32-36); Mean Corpuscular Hemoglobin 32.6 pg (26-34); Mean Corpuscular Volume 94.3 fl (80-100); Mean Platelet Volume 10.1 fl (7.4-10.4); Monocytes Absolute Auto 0.8 K/mm3 (0.1-0.6); Monocytes Percent Auto 15.7 % (2.6-8.5); Neutrophils Absolute Auto 2.9 K/mm3 (1.3-6.7); Neutrophils Percent Auto 55.9 % (45.5-73.1); Platelet Count Result 152 k/mm3 (150-375); Red Blood Count 3.71 M/mm3 (4.6-6.20); Red Cell Distribution Width 13.1 % (11.5-14.5); White Blood Count 5.1 K/mm3 (4.5-10.0)
[2023-09-22 13:55] LABS: Anion Gap 4 mmol/L (4-12); Blood Urea Nitrogen 20 mg/dL (9-20); Calcium 9.3 mg/dL (8.4-10.2); Carbon Dioxide 31 mmol/L (22-30); Chloride 102 mmol/L (98-107); Estimated Glomerular Filt Rate > 60; Glucose 87 mg/dL (65-110); Sodium 137 mmol/L (137-145)
== END 2023-09-22 12:48 | disposition home or self-care (01) ==
LOC: ANHSURGERY 12:53
PROVIDERS: PCP Internal Medicine; Visit Provider Surgery
DX: Z01.818 Encounter for other preprocedural examination (principal); K40.90 Unilateral inguinal hernia, without obstruction or gangrene, not specified as recurrent
CPT/HCPCS: 36415; 80048; 85025; 86850; 86900; 86901; 93005

== ENCOUNTER 2023-09-25 00:45 | Day surgery (SDC) | payer MEDICARE, SELFPAY ==
--- NOTE | 2023-09-19 08:38 | PC.NURSE ---
Report to the Outpatient Waiting Room, entrance under the green pavilion located off [facility], at time ____1000___ on date __09/25/23 . Planned Procedure Time: _1200 . Time changes happen often and if your time is changed the preop area will call you the afternoon before. - You and your visitor will be asked to self-screen and do not enter if you have any COVID symptoms. - A mask is optional within the hospital at this time. Patients may have clear liquids (water, carbonated beverages, clear teas, apple juice) until 3 hours prior to surgery( 9:00 AM) with a maximum of 20 ounces. - No food from midnight until time of surgery - Infants may have breast milk until 4 hours before surgery, infant formula 6 hours prior to surgery. - Children will be allowed to drink immediately following surgery. If applicable, please bring a bottle or sippy cup to assist with drinking. Juice, water, soda, and popsicles are readily available. For infants on formula, please bring formula the day of surgery. Pacifiers are allowed. Take the following medications with a SIP of water the morning of surgery: NONE DO NOT STOP ANY OF YOUR OTHER PRESCRIPTION MEDICATIONS PRIOR TO SURGERY ?EXCEPT THE FOLLOWING Medications to discontinue per physician __MAY CONTINUE ASPIRIN BUT DO NOT TAKE MORNING OF SURGERY PER DR QUINN. HOLD ALL VITAMINS 3 DAYS PRE OP.LAST DOSE 09/21/23 Please no make-up, nail stateless, hairspray, perfume, deodorant, or body powder the day of surgery. No jewelry (including any body piercings) or valuables the day of surgery, leave them at home. Please take a shower or bath the night before, or the morning of, surgery with an antibacterial soap. Wear comfortable, loose fitting clothing. Children are encouraged to wear pajamas. - Jewelry must be removed prior to entering the operating room. Rings and piercings that are not removed may be cut off. - The hospital will not accept responsibility for valuables. - Please leave all valuables, including medications, at home the day of surgery. If you are going home after surgery, a licensed otr flatbed driver must drive you home. - NO public transportation without another adult if you receive anesthesia. - We recommend that an adult stay with you for 24 hours following discharge. - We also recommend that you do not drive, make important decision, drink alcoholic beverages, or take any drugs that were not prescribed by your health care provider for at least 24 hours after your discharge time. Follow any additional instructions given to you from your surgeon. If you or anyone in your household have experienced Covid symptoms in the past week, please notify your surgeon or the nurse liaison at the phone number below for possible testing. Telephone instructions given to __PATIENT and asked if any additional questions and then verbalized understanding. Patient advised to call surgeon office or pre surgery nurse liaison [phone] if any additional questions.
[2023-09-19 08:54] VITALS: BMI 28.8
--- NOTE | 2023-09-24 17:29 | PM.SD2 ---
Same Day Admit/Disch: HPI History of Present Illness Chief complaint: Rt Ing Hernia Narrative: Martir Keene is a 72 year old male who had a left inguinal open hernia repair in 2008. He had an umbilical hernia repair with mesh 2 years ago. He has been having persistent right groin pain that is worse with sneezing or coughing. He does have a right inguinal hernia on exam that is difficult to palpate. He is taken to surgery at this time for robotic laparoscopic right inguinal hernia repair with mesh. [facility], [facility] Past Medical History Medical History Gout History of [place] (myocardial infarction) Hypertension Surgical History Surgical History History of coronary artery stent placement 1994 History of foot surgery History of inguinal hernia repair 07/27/2008 - Left inguinal repair with Marlex mesh and plug and patch overlay History of umbilical hernia repair Umbilical hernia repair with 4.[address] underlay patch 11/14/2021 History of varicose vein ligation Family History Family History Father Hypertension Carcinoma of colon Mother Kidney failure Ovarian cancer Sibling Hypertension Myocardial infarction Social History Social History Smoking packs per day: 1 Smoking cigarettes per day: 20.0 Years smoked: 30 Smoking pack-years: 30.00 Smoking status: Former smoker Tobacco type: cigarettes Smoking end date: 05/19/94 Alcohol intake: current Drinks per week: 14 Alcohol use details: Social alcohol use Living arrangements: alone Occupation/Education: retired Spiritual care concerns: No Same Day Admit/Disch: Med Pre-admit Medications Home Medications Medication Instructions Recorded Confirmed Type allopurinol 300 mg tablet 300 mg PO DAILY 10/29/21 09/19/23 History amlodipine 10 mg tablet 10 mg PO HS 10/29/21 09/19/23 History aspirin 81 mg capsule 81 mg PO DAILY 10/29/21 09/19/23 History finasteride 5 mg tablet 5 mg PO QPM 10/29/21 09/19/23 History metoprolol succinate 100 mg 100 mg PO HS 10/29/21 09/19/23 History tablet,extended release 24 hr multivitamin 1 tablet PO QPM 10/29/21 09/25/23 History losartan 100 1 tablet PO DAILY 11/02/21 09/19/23 History mg-hydrochlorothiazide 25 mg tablet atorvastatin 40 mg tablet 40 mg PO HS 09/19/23 09/19/23 History ibuprofen 600 mg tablet 600 mg PO Q6H PRN pain #14 tabs 09/25/23 Rx oxycodone-acetaminophen 5 mg-325 0.5 - 1 tablet PO Q6H PRN pain #10 09/25/23 Rx mg tablet tabs Review of Systems Review of Systems All systems reviewed & are unremarkable except as noted in HPI and below (HPI) Exam Const: General: comfortable, no acute distress, alert and awake HENMT: Head: normocephalic and atraumatic Mouth: Yes Normal oral and palatal mucosa present Eyes: Conjunctivae: conjunctivae normal Pupils: Equal, round and reactive pupils present EOM: EOMs intact bilaterally Neck: Neck: normal visual inspection, no lymphadenopathy and nontender Resp: Effort & Inspection: normal respiratory effort Auscultation: clear to auscultation bilaterally Cardio: Rate: regular rate Rhythm: regular rhythm Heart sounds: no gallops, no murmurs and no rubs GI: Inspection: normal to inspection and non-distended GI Palp: Yes Soft to palpation, No Tenderness to palpation present (GI), No Hepatomegaly present and No Splenomegaly present : Male General Exam: Yes normal external exam and Yes hernia (Right inguinal bulge barely palpable in standing position with cough) Penis: Yes normal penis Scrotum: scrotum normal Testes: Testes normal Skin: Lesions: no lesions Rashes: no rashes Neuro: General: no focal motor deficits and CN's II-XI intact bilaterally Cranial nerves: Yes Equal, round and reactive pupils present, Yes
[2023-09-25] VITALS (8 sets, daily range): BP systolic 104–142; BP diastolic 61–75; PULSE 61–89; RESP 15–17; TEMP 36.2–36.6; O2SAT 97–100; BMI 28.3
--- NOTE | 2023-09-25 10:20 | WPDANESEPPF ---
Anes - Initial Pre Proc Eval Procedure: Operation Date: 09/25/23 12:00 Proposed Procedures p Robotic Right Inguinal Hernia Repair wth Mesh - Fracisco Machado MD Date/Time: 09/25/23 10:20 Surgeon: Fracisco Machado MD Pre Op Diagnosis: Rt Ing Hernia Patient Data Age: 72 Gender: M Height: 1.75 m Weight: 86.85 kg Allergies Allergy/AdvReac Type Severity Reaction Status Date / Time lisinopril Allergy Severe Swelling Verified 09/25/23 10:02 of Lip/Tongue/Throat PRILS Allergy Unknown Swelling Uncoded 09/19/23 08:34 Home Medications Medication Instructions Recorded Confirmed Type allopurinol 300 mg tablet 300 mg PO DAILY 10/29/21 09/19/23 History amlodipine 10 mg tablet 10 mg PO HS 10/29/21 09/19/23 History aspirin 81 mg capsule 81 mg PO DAILY 10/29/21 09/19/23 History finasteride 5 mg tablet 5 mg PO QPM 10/29/21 09/19/23 History metoprolol succinate 100 mg 100 mg PO HS 10/29/21 09/19/23 History tablet,extended release 24 hr multivitamin 1 tablet PO QPM 10/29/21 09/25/23 History losartan 100 1 tablet PO DAILY 11/02/21 09/19/23 History mg-hydrochlorothiazide 25 mg tablet ibuprofen 600 mg tablet 600 mg PO Q6H PRN pain #14 tabs 11/14/21 09/19/23 Rx atorvastatin 40 mg tablet 40 mg PO HS 09/19/23 09/19/23 History Patient hx anesthesia problems: none Family hx anesthesia problems: post op nausea/vomiting Results Review: All pre-operative results and documents have been reviewed as part of the pre-operative evaluation. [facility] Past Medical History Medical History Gout History of [place] (myocardial infarction) Hypertension Surgical History Surgical History History of coronary artery stent placement 1994 History of foot surgery History of inguinal hernia repair 07/27/2008 - Left inguinal repair with Marlex mesh and plug and patch overlay History of umbilical hernia repair Umbilical hernia repair with 4.[address] underlay patch 11/14/2021 History of varicose vein ligation Family History Family History Father Hypertension Carcinoma of colon Mother Kidney failure Ovarian cancer Sibling Hypertension Myocardial infarction Social History Social History Smoking packs per day: 1 Smoking cigarettes per day: 20.0 Years smoked: 30 Smoking pack-years: 30.00 Smoking status: Former smoker Tobacco type: cigarettes Smoking end date: 05/19/94 Alcohol intake: current Drinks per week: 14 Alcohol use details: Social alcohol use Living arrangements: alone Occupation/Education: retired Spiritual care concerns: No Anes - Eval Final PreProcedure Day of Procedure 09/25/23 10:20 Patient weight: overweight Heart: regular rate and rhythm Lungs: decreased breath sounds Airway: Mallampati scale class II Neurological: alert and oriented Last oral intake: >/= 8 hours ASA classification: III Emergent: no Anesthetic plan: proceed Anesthesia type and monitoring: general ETT and standard monitoring Results Review: All pre-operative results and documents have been reviewed as part of the pre-operative evaluation. Informed Consent: The patient's anesthetic plan and its attendant risks and benefits were discussed with the patient/family/POA. Questions were solicited and answers provided to the satisfaction of the patient/family/POA.
[2023-09-25] MEDS: LACTATED RINGERS 1,000 ML 30 ML IV CONT ×3 (10:25→14:37)
[2023-09-25] MEDS: ACETAMINOPHEN 500 MG TABLET 1000 MG PO (11:10)
[2023-09-25] MEDS: KETOROLAC 15 MG/ML VIAL (*BKC) IV PUSH (11:11)
--- NOTE | 2023-09-25 12:03 | WPDHPUPDATE1 ---
History and Physical Update Update Date/Time: 09/25/23 12:03 History and Physical has been reviewed, including an updated exam of the patient. There are NO changes in the patient's condition. Risks, benefits, and alternatives have been discussed and questions answered. Patient agrees to proceed with procedure.
[2023-09-25] MEDS: ceFAZolin 2 GM/D5W 50 ML 2 GM/50 ML BAG IVPB (12:17)
[2023-09-25] MEDS: BUPIVACAINE/EPINEPHRINE 0.5% 10 ML VIAL 30 ML INFILTRATE (12:46)
--- NOTE | 2023-09-25 14:51 | W.PM.PROC2 ---
Procedure Note - Detailed Date of Procedure 09/25/23 Pre-op Diagnosis Rt Ing Hernia Post-op Diagnosis Same Procedure Performed Robotic laparoscopic right inguinal hernia repair with mesh Surgeon Fracisco Machado MD Broom Stitcher Abelino ESQUIVEL Anesthesia General and Local Indications Patient is a 72-year-old man whom I know from previous left inguinal hernia repair and previous umbilical hernia repair. He was having pain in the right groin. He had a CT scan showing a fat containing right inguinal hernia. His hernia was difficult to palpate but on a 2nd evaluation was clearly evident. He is taken to surgery now for robotic laparoscopic repair right inguinal hernia Findings Patient had a good-sized right inguinal hernia and also a right femoral hernia containing fat. Description of Procedure Patient was taken to surgery and induced into general anesthesia. Access to the abdominal cavity was gained with an applied Medical optical trocar and a 5 mm camera in the left upper quadrant. From there we placed robotic trocars in the right upper quadrant and midline. A robotic trocar was then switched out for the 5 mm port placed initially. The robot was brought into the field and docked in the usual fashion. The surgeon went to the console. A peritoneal flap was created starting anteriorly above the inguinal canal structures. This proceeded over to the median umbilical ligament. We then broadly dissected the flap. In the medial aspect, the dissection stayed under the muscle of the right rectus muscle. We came down onto Jason's ligament and the pubis. I dissected across the midline so that the medial aspect of the left rectus muscle could be seen. Also dissected out about 2 cm posterior to the pubis and Jason's ligament. The hernia was grasped and retracted. I divided the transversalis sling and gently reduced the hernia. The vas deferens and spermatic cord vessels were carefully preserved. The dissection was continued until I found the and the sac and then carefully dissected this free from the cord structures. The peritoneum was dissected posteriorly at least 4 cm from the lower margin of the indirect hernia. I then went back to the medial aspect of Jason's ligament and was doing some gentle dissection here when it was evident that there was quite a bit of fat incarcerated in femoral hernia. This was reduced. This dissection was somewhat bloody and required some cautery as well as bipolar cautery. This blood was gently suctioned away by the 1st assistant product manager. A small amount of additional dissection was carried out on the medial aspect of the cord structures and iliac vessels. We dissected until the obturator fat plug was seen. I then placed an extra-large, 17 x 12 cm right 3DMax mid mesh. This was sutured to Jason's ligament as well as the anterior abdominal wall on both the medial and lateral side of the inferior epigastric vessels. The suture used was 3-0 Vicryl. The repair looked quite good. And then closed the peritoneal flap with running 3-0 V lock suture starting laterally and proceeding medially until the entire flap was closed. We then removed the instruments and undocked robot. Trocars were removed. Skin wounds were closed with subcuticular 4-0 Monocryl skin suture. The wounds were dressed with Exofin surgical adhesive. Patient was awakened and taken to recovery in good condition. Sponge needle counts were correct x2. Implants Right mid 3D max mesh extra-large 17 x 12 cm Estimated Blood Loss -10 Drains No Packing No Pathology None sent Complications No immediate complications Condition Stable Disposition PACU [facility] Billing Surgery - Charge Forward: Surgery Billing (Robotic laparoscopic repair right inguinal hernia with mesh)
== END 2023-09-25 16:37 | disposition home or self-care (01) ==
PROVIDERS: PCP Internal Medicine; Visit Provider Surgery
PROC: 8E0Y4CZ Robotic Assisted Procedure of Lower Extremity, Percutaneous Endoscopic Approach (ICD-10-PCS; CPT 49650; principal; 2023-09-25 12:00)
DX: K40.90 Unilateral inguinal hernia, without obstruction or gangrene, not specified as recurrent (principal); I10 Essential (primary) hypertension; I25.2 Old myocardial infarction; Z79.82 Long term (current) use of aspirin; Z79.1 Long term (current) use of non-steroidal anti-inflammatories (NSAID); Z98.890 Other specified postprocedural states; Z95.5 Presence of coronary angioplasty implant and graft; Z87.891 Personal history of nicotine dependence; Z80.0 Family history of malignant neoplasm of digestive organs; Z80.41 Family history of malignant neoplasm of ovary; Z82.49 Family history of ischemic heart disease and other diseases of the circulatory system
CPT/HCPCS: 49650; S2900; A9270; C1781; J0330; J0690; J1100; J1170; J1596; J1885; J2405; J2704; J3010; J7030; J7120

== ENCOUNTER 2024-02-18 00:23 | Day surgery (SDC) | payer MEDICARE, SELFPAY ==
[2024-02-12 11:23] VITALS: BMI 27.8
[2024-02-18 07:51] VITALS: BP 140/82; PULSE 76; RESP 16; TEMP 36.7; O2SAT 98; BMI 27.7
--- NOTE | 2024-02-18 07:57 | WPDANESEPPF ---
Anes - Initial Pre Proc Eval Procedure: Operation Date: 02/18/24 09:00 Proposed Procedures p Colonoscopy - Neftaly Juarez MD Date/Time: 02/18/24 07:57 Surgeon: Neftaly Juarez MD Pre Op Diagnosis: Pers. Hx. colon polyps Patient Data Age: 73 Gender: M Height: 1.75 m Weight: 85.1 kg Last Vital Signs Temp 36.7 C 02/18/24 07:51 Pulse 76 02/18/24 07:51 Resp 16 02/18/24 07:51 BP 140/82 02/18/24 07:51 Pulse Ox 98 02/18/24 07:51 O2 Del Method Room Air 02/18/24 07:51 Allergies Allergy/AdvReac Type Severity Reaction Status Date / Time SHEILA Inhibitors Allergy Severe ANGIOEDEMA Verified 02/18/24 07:49 lisinopril Allergy Severe Swelling Verified 02/18/24 07:49 of Lip/Tongue/Throat Home Medications Medication Instructions Recorded Confirmed Type allopurinol 300 mg tablet 300 mg PO DAILY 10/29/21 02/18/24 History amlodipine 10 mg tablet 10 mg PO HS 10/29/21 02/18/24 History aspirin 81 mg capsule 81 mg PO DAILY 10/29/21 02/18/24 History finasteride 5 mg tablet 5 mg PO QPM 10/29/21 02/18/24 History metoprolol succinate 100 mg 100 mg PO HS 10/29/21 02/18/24 History tablet,extended release 24 hr multivitamin 1 tablet PO QPM 10/29/21 02/18/24 History losartan 100 1 tablet PO DAILY 11/02/21 02/18/24 History mg-hydrochlorothiazide 25 mg tablet atorvastatin 40 mg tablet 40 mg PO HS 09/19/23 02/18/24 History Patient hx anesthesia problems: none Family hx anesthesia problems: none Results Review: All pre-operative results and documents have been reviewed as part of the pre-operative evaluation. [facility] Past Medical History Medical History (Updated 02/18/24 @ 07:58 by Jorge Gonzalez MD) BMI 32.0-32.9,adult CAD (coronary artery disease) Gout History of [place] (myocardial infarction) Hypertension Surgical History Surgical History History of coronary artery stent placement 1994 History of foot surgery History of inguinal hernia repair 07/27/2008 - Left inguinal repair with Marlex mesh and plug and patch overlay History of right inguinal hernia repair 09/25/23 Robotic laparoscopic right inguinal hernia repair with mesh History of umbilical hernia repair Umbilical hernia repair with 4.[address] underlay patch 11/14/2021 History of varicose vein ligation Family History Family History Father Hypertension Carcinoma of colon Mother Kidney failure Ovarian cancer Sibling Hypertension Myocardial infarction Social History Social History Smoking packs per day: 1 Smoking cigarettes per day: 20.0 Years smoked: 20 Smoking pack-years: 20.00 Smoking status: Former smoker Tobacco type: cigarettes Smoking end date: 05/19/94 Alcohol intake: current Drinks per week: 8 Alcohol use details: 8-10 a week on weekends only Substance use: never Substance use type: does not use Do You Feel Safe in your Home?: Yes Lack of Transportation: No Lack of Food: Never True Current Housing: I Have Housing Concerned About Future Housing: No Difficulty Paying Gas/Electric Bills: No Difficulty Paying for Meds: No Currently Unemployed: No Education: High School Diploma/GED Difficulty w/ Childcare or Family Care: No Living arrangements: alone Occupation/Education: retired Spiritual care concerns: No Anes - Eval Final PreProcedure Day of Procedure 02/18/24 07:57 Patient weight: overweight Heart: regular rate and rhythm Lungs: clear to auscultation Airway: Mallampati scale class II Neurological: alert and oriented Last oral intake: >/= 8 hours ASA classification: III Emergent: no Anesthetic plan: proceed Anesthesia type and monitoring: general GIVS and standard monitoring Results Review: All pre-operative results and documents have been reviewed as part of the
[2024-02-18] MEDS: LACTATED RINGERS 1,000 ML 150 ML IV CONT (08:14)
--- NOTE | 2024-02-18 08:45 | PM.IMHP ---
H&P: HPI History of Present Illness Date/Time: 02/18/24 08:45 Chief Complaint: History of colonic polyps, here for surveillance colonoscopy. [facility] Past Medical History Medical History (Updated 02/18/24 @ 08:47 by Neftaly Juarez MD) BMI 32.0-32.9,adult CAD (coronary artery disease) Gout History of [place] (myocardial infarction) Hypertension Surgical History Surgical History History of coronary artery stent placement 1994 History of foot surgery History of inguinal hernia repair 07/27/2008 - Left inguinal repair with Marlex mesh and plug and patch overlay History of right inguinal hernia repair 09/25/23 Robotic laparoscopic right inguinal hernia repair with mesh History of umbilical hernia repair Umbilical hernia repair with 4.[address] underlay patch 11/14/2021 History of varicose vein ligation Family History Family History Father Hypertension Carcinoma of colon Mother Kidney failure Ovarian cancer Sibling Hypertension Myocardial infarction Social History Social History Smoking packs per day: 1 Smoking cigarettes per day: 20.0 Years smoked: 20 Smoking pack-years: 20.00 Smoking status: Former smoker Tobacco type: cigarettes Smoking end date: 05/19/94 Alcohol intake: current Drinks per week: 8 Alcohol use details: 8-10 a week on weekends only Substance use: never Substance use type: does not use Do You Feel Safe in your Home?: Yes Lack of Transportation: No Lack of Food: Never True Current Housing: I Have Housing Concerned About Future Housing: No Difficulty Paying Gas/Electric Bills: No Difficulty Paying for Meds: No Currently Unemployed: No Education: High School Diploma/GED Difficulty w/ Childcare or Family Care: No Living arrangements: alone Occupation/Education: retired Spiritual care concerns: No Meds Home Medications and Allergies Home Medications Medication Instructions Recorded Confirmed Type allopurinol 300 mg tablet 300 mg PO DAILY 10/29/21 02/18/24 History amlodipine 10 mg tablet 10 mg PO HS 10/29/21 02/18/24 History aspirin 81 mg capsule 81 mg PO DAILY 10/29/21 02/18/24 History finasteride 5 mg tablet 5 mg PO QPM 10/29/21 02/18/24 History metoprolol succinate 100 mg 100 mg PO HS 10/29/21 02/18/24 History tablet,extended release 24 hr multivitamin 1 tablet PO QPM 10/29/21 02/18/24 History losartan 100 1 tablet PO DAILY 11/02/21 02/18/24 History mg-hydrochlorothiazide 25 mg tablet atorvastatin 40 mg tablet 40 mg PO HS 09/19/23 02/18/24 History Allergies Allergy/AdvReac Type Severity Reaction Status Date / Time SHEILA Inhibitors Allergy Severe ANGIOEDEMA Verified 02/18/24 07:49 lisinopril Allergy Severe Swelling Verified 02/18/24 07:49 of Lip/Tongue/Throat Vital Signs Vital Signs - 24 hr 02/18/24 07:51 Temperature 98.0 F Pulse Rate 76 Respiratory Rate 16 Blood Pressure 140/82 Pulse Oximetry 98 Oxygen Delivery Room Air Exam Narrative: within normal limits Assessment and Plan Assessment and plan (1) Screening for malignant neoplasm of colon: Code(s): Z12.11 - Encounter for screening for malignant neoplasm of colon Status: Acute Plan Patient demed a good candidate for colonoscopy, will proceed.
--- NOTE | 2024-02-18 08:47 | PM.IMHP ---
H&P: HPI History of Present Illness Date/Time: 02/18/24 08:47 Chief Complaint: for colonoscopy [facility] Past Medical History Medical History (Updated 02/18/24 @ 08:47 by Neftaly Juarez MD) BMI 32.0-32.9,adult CAD (coronary artery disease) Gout History of [place] (myocardial infarction) Hypertension Surgical History Surgical History History of coronary artery stent placement 1994 History of foot surgery History of inguinal hernia repair 07/27/2008 - Left inguinal repair with Marlex mesh and plug and patch overlay History of right inguinal hernia repair 09/25/23 Robotic laparoscopic right inguinal hernia repair with mesh History of umbilical hernia repair Umbilical hernia repair with 4.[address] underlay patch 11/14/2021 History of varicose vein ligation Family History Family History Father Hypertension Carcinoma of colon Mother Kidney failure Ovarian cancer Sibling Hypertension Myocardial infarction Social History Social History Smoking packs per day: 1 Smoking cigarettes per day: 20.0 Years smoked: 20 Smoking pack-years: 20.00 Smoking status: Former smoker Tobacco type: cigarettes Smoking end date: 05/19/94 Alcohol intake: current Drinks per week: 8 Alcohol use details: 8-10 a week on weekends only Substance use: never Substance use type: does not use Do You Feel Safe in your Home?: Yes Lack of Transportation: No Lack of Food: Never True Current Housing: I Have Housing Concerned About Future Housing: No Difficulty Paying Gas/Electric Bills: No Difficulty Paying for Meds: No Currently Unemployed: No Education: High School Diploma/GED Difficulty w/ Childcare or Family Care: No Living arrangements: alone Occupation/Education: retired Spiritual care concerns: No Meds Home Medications and Allergies Home Medications Medication Instructions Recorded Confirmed Type allopurinol 300 mg tablet 300 mg PO DAILY 10/29/21 02/18/24 History amlodipine 10 mg tablet 10 mg PO HS 10/29/21 02/18/24 History aspirin 81 mg capsule 81 mg PO DAILY 10/29/21 02/18/24 History finasteride 5 mg tablet 5 mg PO QPM 10/29/21 02/18/24 History metoprolol succinate 100 mg 100 mg PO HS 10/29/21 02/18/24 History tablet,extended release 24 hr multivitamin 1 tablet PO QPM 10/29/21 02/18/24 History losartan 100 1 tablet PO DAILY 11/02/21 02/18/24 History mg-hydrochlorothiazide 25 mg tablet atorvastatin 40 mg tablet 40 mg PO HS 09/19/23 02/18/24 History Allergies Allergy/AdvReac Type Severity Reaction Status Date / Time SHEILA Inhibitors Allergy Severe ANGIOEDEMA Verified 02/18/24 07:49 lisinopril Allergy Severe Swelling Verified 02/18/24 07:49 of Lip/Tongue/Throat Vital Signs Vital Signs - 24 hr 02/18/24 07:51 Temperature 98.0 F Pulse Rate 76 Respiratory Rate 16 Blood Pressure 140/82 Pulse Oximetry 98 Oxygen Delivery Room Air
[2024-02-18 09:11] VITALS: BP 130/74; PULSE 79; RESP 16; O2SAT 99
[2024-02-18 09:21] VITALS: BP 137/80; PULSE 78; RESP 20; O2SAT 99
[2024-02-18 09:31] VITALS: BP 141/82; PULSE 65; RESP 18; O2SAT 100
== END 2024-02-18 09:37 | disposition home or self-care (01) ==
PROVIDERS: PCP Internal Medicine; Referring Provider Internal Medicine Gastroenterology; Visit Provider Internal Medicine Gastroenterology
PROC: 0DJD8ZZ Inspection of Lower Intestinal Tract, Via Natural or Artificial Opening Endoscopic (ICD-10-PCS; CPT 45378; principal; 2024-02-18 09:00)
DX: Z12.11 Encounter for screening for malignant neoplasm of colon (principal); K63.5 Polyp of colon; K57.30 Diverticulosis of large intestine without perforation or abscess without bleeding; I10 Essential (primary) hypertension; I25.10 Atherosclerotic heart disease of native coronary artery without angina pectoris; I25.2 Old myocardial infarction; M10.9 Gout, unspecified; Z95.5 Presence of coronary angioplasty implant and graft; Z87.891 Personal history of nicotine dependence; Z79.82 Long term (current) use of aspirin
CPT/HCPCS: 45385; 88305; J2003; J2704; J7120

== ENCOUNTER 2024-05-26 08:08 | Outpatient (CLI) | payer MEDICARE, SELFPAY ==
[2024-05-26 08:49] LABS: Basophils Absolute Auto 0.01 K/mm3 (0.00-0.10); Basophils Percent Auto 0.2 % (0.0-1.0); Eosinophils Absolute Auto 0.06 K/mm3 (0.02-0.50); Eosinophils Percent Auto 1.3 % (1.0-6.0); Hematocrit 38.5 % (37.0-46.0); Hemoglobin 12.8 g/dL (12.4-15.3); Immature Granulocyte Absolute 0.03 K/mm3 (0.00-0.00); Immature Granulocyte Percent A 0.6 % (0.0-0.0); Lymphocytes Absolute Auto 1.31 K/mm3 (1.10-4.50); Lymphocytes Percent Auto 28.2 % (18.0-42.0); Mean Corpuscular HGB Conc 33.2 g/dL (32-36); Mean Corpuscular Hemoglobin 31.2 pg (27.0-31.0); Mean Corpuscular Volume 93.9 fL (78.0-102.0); Mean Platelet Volume 9.7 fl (8.7-11.0); Monocytes Absolute Auto 0.67 K/mm3 (0.10-0.90); Monocytes Percent Auto 14.4 % (2.0-11.0); Neutrophils Absolute Auto 2.57 K/mm3 (1.70-7.20); Neutrophils Percent Auto 55.3 % (50.0-70.0); Platelet Count Result 157 K/mm3 (150-420); Red Cell Distribution Width 12.8 % (11.6-14.4); White Blood Count 4.7 K/mm3 (4.8-10.8)
[2024-05-26 09:10] LABS: Alanine Aminotransferase 37 U/L (16-63); Albumin Level 3.8 g/dL (3.4-5.0); Alkaline Phosphatase 104 U/L (46-116); Anion Gap 10 mmol/L (4-12); Aspartate Amino Transferase 36 U/L (15-37); Bilirubin,Total 1.2 mg/dL (0.00-1.00); Blood Urea Nitrogen 10 mg/dL (7-18); Calcium 9.1 mg/dL (8.5-10.1); Carbon Dioxide 30 mmol/L (21-32); Chloride 102 mmol/L (98-108); Cholesterol 124 mg/dL (0-200); Estimated Glomerular Filt Rate > 60; Glucose 93 mg/dL (70-99); HDL Direct 60 mg/dL (40-60); LDL Cholesterol Calculated 44 mg/dL (<130); Osmolality Calculated 293 mOsm/kg (285-295); Potassium 3.7 mmol/L (3.5-5.1); Sodium 142 mmol/L (136-145); Total Protein 6.6 g/dL (6.4-8.2); Triglycerides 98 mg/dL (0-150)
[2024-05-26 22:58] LABS: Hemoglobin A1C 5.5 % (<5.7)
== END 2024-05-26 08:09 | disposition home or self-care (01) ==
LOC: CHSLAB 08:10
PROVIDERS: PCP Internal Medicine; Visit Provider Internal Medicine
DX: E78.5 Hyperlipidemia, unspecified (principal); I10 Essential (primary) hypertension; R73.9 Hyperglycemia, unspecified
CPT/HCPCS: 36415; 80053; 80061; 83036; 85025

== ENCOUNTER 2024-06-28 09:10 | Outpatient (CLI) | payer MEDICARE, SELFPAY ==
--- NOTE | ~2024-06-28 | XR_ITS ---
EXAMINATION: XR sinus min 3V DATE: 06/28/2024 09:57 INDICATION: Sinusitis. Headache. TECHNIQUE: 5 views of the paranasal sinuses were obtained. COMPARISON: None. FINDINGS: Alignment is normal. No fracture. There is mucosal thickening in the maxillary sinuses. IMPRESSION: 1. Mucosal thickening in the maxillary sinuses. Reviewed, dictated and finalized at location A. FARMER
--- OUTSIDE RECORDS SUMMARY | 2024-06-28 09:36 | XMS_ITS | Clinical Summary ---
Author Organization [facility] [id number] [facility] Address [address] [place] [phone] Phone Care Team Providers Care Community Board Member Name Role Phone Vernell Kapoor MD Unavailable Josue Lmeon MD Primary Care Provider [phone] Allergies Active Allergy Reactions Criticality Noted Date Comments Lisinopril Angioedema High 06/15/2018 Swelling of lips and cheeks, 2018 Medications vlnkqdit-pjmlmhnq-a errous fum (MULTI VITAMIN) 9 mg iron/15 mL liquid 0 0 4 Active allopurinol (ZYLOPRIM) 300 mg tablet TAKE 1 TABLET EVERY DAY 90 tablet 8 Active finasteride (PROSCAR) 5 mg tablet Take 1 tablet (5 mg total) by mouth daily 9 Active aspirin 81 mg chewable tablet Take 1 tablet (81 mg total) by mouth daily. 0 9 Active amLODIPine (NORVASC) 10 mg tablet Take 1 tablet (10 mg total) by mouth daily 90 tablet 3 4 Active losartan-hydrochlor othiazide (HYZAAR) 100-25 mg per tablet TAKE 1 TABLET DAILY 90 tablet 2 4 Active metoprolol XL (TOPROL-XL) 100 mg 24 hr tabletIndications:A therosclerosis of teller coronary artery of teller heart without angina pectoris,Essential hypertension TAKE 1 TABLET DAILY 90 tablet 1 4 Active atorvastatin (LIPITOR) 40 mg tabletIndications:A therosclerosis of teller coronary artery of teller heart without angina pectoris,Mixed hyperlipidemia TAKE 1 TABLET DAILY 90 tablet 5 Active Active Problems Problem Noted Date Diagnosed Date Inflammatory polyarthropathy ([facility]/HCC) 8 Assessment & Plan (02/04/2018 9:53 AM CDT): Patient disease activity is low. Patient is to continue to hold ARAVA. Will repeat labs today. If LFTS normal will have him go back on ARAVA 10 mg/d.. Patient provided samples of pennsaid to use sparingly. Assessment & Plan (11/03/2017 10:50 AM CDT): Patient disease activity is low. Patient is to continue ARAVA. He has minimal complaints of joint pain and stiffness today. May need to add a DMARD or biologic in the future as he still has some swelling on exam. Will check routine labs today. Assessment & Plan (09/16/2017 10:19 AM CDT): Patient disease activity is moderate. Will give the ARAVA more time to take effect as he has only been on this for one month. Will repeat labs today as he has had lft elevation in the past. May need to add another dmard vs biologic. Assessment & Plan (06/27/2017 4:47 PM TOPSTITCHER LOCKSTITCH): Due to presence of synovitis and effusions in his MCPs I suspect he has overlap with an inflammatory arthritis such as spondyloarthropathy or seronegative RA in addition to his gout. Discussed beginning leflunomide 20mg daily as this may confer benefits for both processes. Reviewed risks and benefits. Labs today and f/u 1 month White coat syndrome with hypertension 06/17/2017 halfway use of drug 05/22/2017 Assessment & Plan (02/04/2018 9:53 AM CDT): Will continue to monitor the patient with routine labs. Assessment & Plan (11/03/2017 10:50 AM CDT): Will continue to monitor the patient with routine labs. Assessment & Plan (09/16/2017 10:20 AM CDT): Will continue to monitor the patient with routine labs. Assessment & Plan (05/22/2017 12:27 PM TOPSTITCHER LOCKSTITCH): Will continue to monitor the patient with routine labs. 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 Chronic history consistent with gout. Uric acid has improved to 5.3 on labs from 01/30/17 so will continue 300mg allopurinol daily. His xrays show degenerative changes at 2,3 mcps with osteophytes. These findings can be seen in Oa, cppd, or hemochromatosis. His foot xrays show severe OA of 1st mtps and small heel spurs. Ultrasound of his R foot/ankle shows: Synovitis with effusions. Large thickened plantar fascia. Grade 1 effusion in peroneal tendon sheath. Double contour sign seen in several joints. These findings may be seen in gout and will have to be correlated clinically. Plantar fasciitis may be seen with spondyloarthropathies Assessment & Plan (02/04/2018 9:54 AM CDT): On allopurinol and colchicine. No recent gout flare. Advised to see if he could wean off of colchicine. Assessment & Plan (11/03/2017 9:57 AM CDT): Recent L hand u/s shows mild synovial thickening/effusions with power doppler, including the 3rd mcp which has been more symptomatic. May still be due to chronic gout vs other inflammatory arthritis. His xrays show degenerative changes at 2,3 mcps with osteophytes. These findings can be seen in Oa, cppd, or hemochromatosis. His foot xrays show severe OA of 1st mtps and small heel spurs. Ultrasound of his R foot/ankle shows: Synovitis with effusions. Large thickened plantar fascia. Grade 1 effusion in peroneal tendon sheath. Double contour sign seen in several joints. These findings may be seen in gout and will have to be correlated clinically. Plantar fasciitis may be seen with spondyloarthropathies He is to continue allopurinol and colchicine. No recent gout flares in his feet. Most recent uric acid 4.9. Assessment & Plan (09/16/2017 10:05 AM CDT): Recent L hand u/s shows mild synovial thickening/effusions with power doppler, including the 3rd mcp which has been more symptomatic. May still be due to chronic gout vs other inflammatory arthritis. His xrays show degenerative changes at 2,3 mcps with osteophytes. These findings can be seen in Oa, cppd, or hemochromatosis. His foot xrays show severe OA of 1st mtps and small heel spurs. Ultrasound of his R foot/ankle shows: Synovitis with effusions. Large thickened plantar fascia. Grade 1 effusion in peroneal tendon sheath. Double contour sign seen in several joints. These findings may be seen in gout and will have to be correlated clinically. Plantar fasciitis may be seen with spondyloarthropathies He is to continue allopurinol and colchicine. No recent gout flares in his feet. Most recent uric acid 4.9. Assessment & Plan (06/27/2017 1:20 PM TOPSTITCHER LOCKSTITCH): Recent L hand u/s shows mild synovial thickening/effusions with power doppler, including the 3rd mcp which has been more symptomatic. May still be due to chronic gout vs other inflammatory arthritis. His xrays show degenerative changes at 2,3 mcps with osteophytes. These findings can be seen in Oa, cppd, or hemochromatosis. His foot xrays show severe OA of 1st mtps and small heel spurs. Ultrasound of his R foot/ankle shows: Synovitis with effusions. Large thickened plantar fascia. Grade 1 effusion in peroneal tendon sheath. Double contour sign seen in several joints. These findings may be seen in gout and will have to be correlated clinically. Plantar fasciitis may be seen with spondyloarthropathies He is to continue allopurinol and colchicine. No recent gout flares in his feet. Most recent uric acid 4.9. Assessment & Plan (05/22/2017 12:27 PM TOPSTITCHER LOCKSTITCH): His xrays show degenerative changes at 2,3 mcps with osteophytes. These findings can be seen in Oa, cppd, or hemochromatosis. His foot xrays show severe OA of 1st mtps and small heel spurs. Ultrasound of his R foot/ankle shows: Synovitis with effusions. Large thickened plantar fascia. Grade 1 effusion in peroneal tendon sheath. Double contour sign seen in several joints. These findings may be seen in gout and will have to be correlated clinically. Plantar fasciitis may be seen with spondyloarthropathies Today is complaining of flares in his left 3rd MCP. This is not where he typically experiences gout. Will get an u/s of the hand/wrist to evaluate further. Gout vs inflammatory spondyloarthropathy. He is to continue allopurinol and colchicine. No recent gout flares in his feet. Most recent uric acid 4.9. Assessment & Plan (02/18/2017 12:38 PM CDT): Negative serologies. Chronic history consistent with gout. Uric acid has improved to 5.3 on labs from 01/30/17 so will continue 300mg allopurinol daily. His xrays show degenerative changes at 2,3 mcps with osteophytes. These findings can be seen in Oa, cppd, or hemochromatosis. His foot xrays show severe OA of 1st mtps and small heel spurs. Ultrasound of his R foot/ankle shows: Synovitis with effusions. Large thickened plantar fascia. Grade 1 effusion in peroneal tendon sheath. Double contour sign seen in several joints. These findings may be seen in gout and will have to be correlated clinically. Plantar fasciitis may be seen with spondyloarthropathies Discussed that most likely he has chronic gout though cannot r/o possibility of another inflammatory arthritis. Continue colchicine once daily for prophylaxis. After 6-12 months if stable we can remove the colchicine. Allopurinol is lifelong. Goal uric acid under 6. F/u 3 months or sooner if problems. Will recheck labs about a week before next visit. Seen with Dr. Kapoor. Assessment & Plan (12/12/2016 5:26 PM CDT): Results reviewed with pt. His serologies are negative. Uric acid is 7.8. His xrays show degenerative changes at 2,3 mcps with osteophytes. These findings can be seen in Oa, cppd, or hemochromatosis. His foot xrays show severe OA of 1st mtps and small heel spurs. Ultrasound of his R foot/ankle shows: Synovitis with effusions. Large thickened plantar fascia. Grade 1 effusion in peroneal tendon sheath. Double contour sign seen in several joints. These findings may be seen in gout and will have to be correlated clinically. Plantar fasciitis may be seen with spondyloarthropathies Discussed that most likely he has chronic gout though cannot r/o possibility of another inflammatory arthritis. Tolerating allopurinol 100mg daily so will repeat uric acid and then titrate dose to 200mg if not under 6. Repeat uric acid another 2-4 weeks after that. Will also give scrip for colchicine 0.6mg to take daily as prophylaxis for flares. He can f/u in 6-8 weeks when his is due back also. Call if problems. Assessment & Plan (11/28/2016 11:31 AM CDT): Long history of acute episodes of pain and swelling in R foot that sound consistent with gout. Has taken allopurinol intermittently over the years. He uses ibuprofen as needed currently. Discussed the nature and progression of gout. Discussed diet and lifestyle factors related to gout. Also discussed that thiazide diuretics can increase risk of gout. Will check labs and xrays, also consider u/s of R foot. Will most likely need to begin lifelong treatment with allopurinol with a second agent to cover for flares. ACR handout on gout provided to pt. Will start allopurinol 100mg daily and plan to repeat uric acid in 2 weeks at his f/u visit. Seen with Dr. Kapoor F/u 2 weeks Presence of stent in coronary artery 03/01/2016 Overview (08/22/2016): Stented coronary artery Essential hypertension 03/01/2016 Overview (08/23/2016): Essential hypertension Post percutaneous transluminal coronary angiopla sty 06/07/2013 Overview (08/22/2016): STATUS-POST PTCA Old myocardial infarction 06/07/2013 Overview (08/23/2016): OLD MYOCARDIAL INFARCT Pure hypercholesterolemia 06/07/2013 Overview (08/23/2016): PURE HYPERCHOLESTEROLEM Coronary arteriosclerosis in teller artery 02/02 Overview (03/14/2017): CRNRY ATHRSCL NATVE VSSL 1994 IMI and RCA stent 2014: Negative treadmill stress test. Assessment & Plan (11/28/2016 11:24 AM CDT): MS and stent in 1994 Resolved Problems Problem Noted Date Diagnosed Date Resolved Date Allergic reaction caused by a drug 11/18/2017 06/22/2018 Encounter for therapeutic drug monitoring 02/17/2017 11/03/2017 Adiposity 03/01/2016 06/22/2018 Overview (08/22/2016): Obesity (BMI 30.0-34.9) Hypercholesterolemia 03/01/2016 017 Overview (08/23/2016): Hypercholesteremia Hypertension 06/07/2013 03/14/2017 Overview (08/24/2016): HYPERTENSION NOS Assessment & Plan (11/28/2016 11:24 AM CDT): Treated by pcp and sees cardiology due to hx MS Surgical History Surgery Date Site/Laterality Comments INGUINAL HERNIA REPAIR Left Inguinal Hernia Repair CARDIAC STENT PLACEMENT Medical History Medical History Date Comments Hypertension Myocardial infarction (HCC) 1994 Hyperlipidemia Coronary artery disease Cardiac Stent Gout Arthritis RA Family History Medical History Relation Name Comments Colon cancer Father 2 Cancer, colon; Cause of : Cancer, colon Other Mother 2 Carotid Disease ; Relation Name Status Comments Father 1 (Age 89) Father 2 Mother 1 Alive Mother 2 Social History Tobacco Use Types Packs/Day Years Used Date Smoking Tobacco: Former Smokeless Tobacco: Never Tobacco Cessation:Counseling Given: Not Answered Alcohol Use Standard Drinks/Week Comments Yes 0 (1 standard drink = 0.6 oz pur e alcohol) Sex and Gender Information Value Date Recorded Sex Assigned at Not on file Legal Sex Male 9:10 AM [employer]STITCHER LOCKSTITCH Gender Identity Male 06/10/2021 1:01 PM [employer]STITCHER LOCKSTITCH Sexual Orientation Not on file Obstetrics History Last Filed Vital Signs Vital Sign Reading Time Taken Comments Blood Pressure 142/82 07/07/2023 9:59 AM TOPSTITCHER LOCKSTITCH Pulse 59 07/07/2023 9:59 AM TOPSTITCHER LOCKSTITCH Temperature 36.3 C (97.3 F) 10/10/2017 10:33 AM CDT Respiratory Rate 20 10/10/2017 10:55 AM CDT Oxygen Saturation 99% 07/07/2023 9:59 AM TOPSTITCHER LOCKSTITCH Inhaled Oxygen Concentration - - Weight 89.4 kg (197 lb) 07/07/2023 9:59 AM TOPSTITCHER LOCKSTITCH Height 175.3 cm (5' 9 ) 07/07/2023 9:59 AM TOPSTITCHER LOCKSTITCH Body Mass Index 29.09 07/07/2023 9:59 AM TOPSTITCHER LOCKSTITCH Plan of Treatment Health Maintenance Due Date Last Done Comments Colon Cancer Screening-Colonoscopy 1950 Depression Screening 1950 Fall Risk Assessment 1950 Hepatitis C Screening 1950 Hepatitis B Screening 11/21/1967 Abdominal Aortic Aneurysm (AAA) Screen 2014 Well Visit 65+ 2014 Covid-19 Vaccine ( season) 2024, 06/21/2020 Influenza Vaccine (#1) 2024 DTaP/Tdap/Td Vaccine (2 - Td or Tdap) 02/03/2033 Pneumococcal vaccine 65+ Completed 12/02/2022 Zoster Vaccine Completed 02/03/2023, 12/02/2022 Medical Devices Implanted Type Area Senior Living Advisor Device Identifier Shelf Expiration Date Model / Serial / Lot Wire Fixation P[employer] [id number] Mm Od1.6 Mm Trocar Point 2 End Style 1 Sterile - [id number] Implanted:Qty : 1 on 10/10/2017 by Wellington Gordillo DPM at [facility] Right: Foot [employer] 01/15/2022 [id number] / / Implant Fixation L10 Mm Od3.4 Mm Odsec3 Mm Toe 2 Step Hammer - [id number] Implanted:Qty : 1 on 10/10/2017 by Wellington Gordillo DPM at [facility] Right: Foot [employer] [id number] / / Insurance [employer] [facility] MEDICARE MEDICARE AETNA MEDICARE AETNA SENIOR SUPPLEMENT Care Teams Community Board Member Relationship Specialty [place] [id number] [facility] [address] [place] [address] PCP - General Internal Medicine 06/24/22 [place] [id number] [facility] [address] [place] [address] Rheumatology 12/17/16
--- OUTSIDE RECORDS SUMMARY | 2024-06-28 09:36 | XMS_ITS | Patient Health Summary ---
Author Organization [facility] Address [address] [place] [address] Care Team Providers Care Aquarium Tank Attendant Name Role Phone Unavailable Primary Care Provider Unavailabl e Note from [facility],non-owned Affiliates and Associated Physician Practices is amultiple site organization consisting of ambulatory clinics and hospital sitesin [place], [place], [place] and [place]. This disclosure is being madepursuant to the Care Everywhere program and may not contain all information available regarding this patient. Last updated 18.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 Moderate to severe osteoarthritis of both hands. There is joint space loss involving the index and long finger metacarpophalangeal joints bilaterally with associated osteophytes. No chondrocalcinosis is noted. Considerations would include posttraumatic osteoarthritis versus CPPD or hemachromatosis. 2. Bilateral great toe metatarsophalangeal joint osteoarthritis with associated bunions. No definite erosions are seen within either foot. There are bilateral heel spurs. Narrative 11/28/2016 1:04 PM CDT Examination: 1. Bilateral hands 2 views each 2. Bilateral feet 2 views each History: Bilateral hand and foot pain. Gout. Findings: 2 views of both feet were performed without prior comparison. There is severe left great toe metatarsophalangeal joint osteoarthritis and moderate great toe interphalangeal joint osteoarthritis. Soft tissue swelling is noted medial to the great toe metatarsal head but no definite adjacent erosion is seen. There is a left heel spur. There is a large right first metatarsal head bunion and moderate right great toe metatarsophalangeal joint osteoarthritis. Osteoarthritis of the lesser toes is noted. There is flattening of the second metatarsal head which could represent sequela of prior avascular necrosis. No definite right foot erosion is seen. There is a right heel spur. 2 views of both hands were performed. There is severe left greater than right bilateral base of thumb osteoarthritis. There is mild bilateral triscaphe osteoarthritis. There is an old healed right fifth metacarpal fracture. There is moderate joint space loss involving the index and long finger metacarpophalangeal joints bilaterally with associated osteophytes. No chondrocalcinosis is noted. There is moderate distal interphalangeal joint osteoarthritis of the fingers of both hands. Procedure Note Julio Siddiqi MD - 11/28/2016 Examination: 1. Bilateral hands 2 views each 2. Bilateral feet 2 views each History: Bilateral hand and foot pain. Gout. Findings: 2 views of both feet were performed without prior comparison. There is severe left great toe metatarsophalangeal joint osteoarthritis and moderate great toe interphalangeal joint osteoarthritis. Soft tissue swelling is noted medial to the great toe metatarsal head but no definite adjacent erosion is seen. There is a left heel spur. There is a large right first metatarsal head bunion and moderate right great toe metatarsophalangeal joint osteoarthritis. Osteoarthritis of the lesser toes is noted. There is flattening of the second metatarsal head which could represent sequela of prior avascular necrosis. No definite right foot erosion is seen. There is a right heel spur. 2 views of both hands were performed. There is severe left greater than right bilateral base of thumb osteoarthritis. There is mild bilateral triscaphe osteoarthritis. There is an old healed right fifth metacarpal fracture. There is moderate joint space loss involving the index and long finger metacarpophalangeal joints bilaterally with associated osteophytes. No chondrocalcinosis is noted. There is moderate distal interphalangeal joint osteoarthritis of the fingers of both hands. IMPRESSION 1. Moderate to severe osteoarthritis of both hands. There is joint space loss involving the index and long finger metacarpophalangeal joints bilaterally with associated osteophytes. No chondrocalcinosis is noted. Considerations would include posttraumatic osteoarthritis versus CPPD or hemachromatosis. 2. Bilateral great toe metatarsophalangeal joint osteoarthritis with associated bunions. No definite erosions are seen within either foot. There are bilateral heel spurs. [facility] NG ORDERABLES * XR FOOT BILAT 2 VIEWS (11/28/2016 12:58 PM CDT) Anatomical Region Laterality Modality Lower Extremity, Ankle / Foot Ra diographic Imaging 11/28/2016 1:01 PM CDT Impressions 11/28/2016 1:04 PM CDT 1. Moderate to severe osteoarthritis of both hands. There is joint space loss involving the index and long finger metacarpophalangeal joints bilaterally with associated osteophytes. No chondrocalcinosis is noted. Considerations would include posttraumatic osteoarthritis versus CPPD or hemachromatosis. 2. Bilateral great toe metatarsophalangeal joint osteoarthritis with associated bunions. No definite erosions are seen within either foot. There are bilateral heel spurs. Narrative 11/28/2016 1:04 PM CDT Examination: 1. Bilateral hands 2 views each 2. Bilateral feet 2 views each History: Bilateral hand and foot pain. Gout. Findings: 2 views of both feet were performed without prior comparison. There is severe left great toe metatarsophalangeal joint osteoarthritis and moderate great toe interphalangeal joint osteoarthritis. Soft tissue swelling is noted medial to the great toe metatarsal head but no definite adjacent erosion is seen. There is a left heel spur. There is a large right first metatarsal head bunion and moderate right great toe metatarsophalangeal joint osteoarthritis. Osteoarthritis of the lesser toes is noted. There is flattening of the second metatarsal head which could represent sequela of prior avascular necrosis. No definite right foot erosion is seen. There is a right heel spur. 2 views of both hands were performed. There is severe left greater than right bilateral base of thumb osteoarthritis. There is mild bilateral triscaphe osteoarthritis. There is an old healed right fifth metacarpal fracture. There is moderate joint space loss involving the index and long finger metacarpophalangeal joints bilaterally with associated osteophytes. No chondrocalcinosis is noted. There is moderate distal interphalangeal joint osteoarthritis of the fingers of both hands. Procedure Note Julio Siddiqi MD - 11/28/2016 Examination: 1. Bilateral hands 2 views each 2. Bilateral feet 2 views each History: Bilateral hand and foot pain. Gout. Findings: 2 views of both feet were performed without prior comparison. There is severe left great toe metatarsophalangeal joint osteoarthritis and moderate great toe interphalangeal joint osteoarthritis. Soft tissue swelling is noted medial to the great toe metatarsal head but no definite adjacent erosion is seen. There is a left heel spur. There is a large right first metatarsal head bunion and moderate right great toe metatarsophalangeal joint osteoarthritis. Osteoarthritis of the lesser toes is noted. There is flattening of the second metatarsal head which could represent sequela of prior avascular necrosis. No definite right foot erosion is seen. There is a right heel spur. 2 views of both hands were performed. There is severe left greater than right bilateral base of thumb osteoarthritis. There is mild bilateral triscaphe osteoarthritis. There is an old healed right fifth metacarpal fracture. There is moderate joint space loss involving the index and long finger metacarpophalangeal joints bilaterally with associated osteophytes. No chondrocalcinosis is noted. There is moderate distal interphalangeal joint osteoarthritis of the fingers of both hands. IMPRESSION 1. Moderate to severe osteoarthritis of both hands. There is joint space loss involving the index and long finger metacarpophalangeal joints bilaterally with associated osteophytes. No chondrocalcinosis is noted. Considerations would include posttraumatic osteoarthritis versus CPPD or hemachromatosis. 2. Bilateral great toe metatarsophalangeal joint osteoarthritis with associated bunions. No definite erosions are seen within either foot. There are bilateral heel spurs. [facility]AGI NG ORDERABLES * XR SACROILIAC JOINTS < 3 VW (11/28/2016 12:58 PM CDT) Anatomical Region Laterality Modality Pelvis, Lower Extremity [facility] 11/28/2016 12:5 5 PM CDT Impressions 11/28/2016 1:13 PM CDT Unremarkable SI joints. Edited by Shala Galloway on 11/28/2016 12:56 PM Narrative 11/28/2016 1:13 PM CDT SI JOINTS 3 VIEWS. HISTORY: Pain. Views of the SI joints show normal-appearing joints without evidence for fusion, sclerosis, or erosion. Procedure Note Sherif Gallo MD - 11/28/2016 SI JOINTS 3 VIEWS. HISTORY: Pain. Views of the SI joints show normal-appearing joints without evidence for fusion, sclerosis, or erosion. IMPRESSION Unremarkable SI joints. Edited by Shala Galloway on 11/28/2016 12:56 PM [facility] IMAGI NG ORDERABLES
--- OUTSIDE RECORDS SUMMARY | 2024-06-28 09:36 | XMS_ITS | Referral Summary ---
Author Organization [facility] Address [address] [place] [phone] Phone Care Team Providers Care R D Intern Name Role Phone Vernell Kapoor MD Unavailable Josue Lemon MD Primary Care Provider Allergies Active Allergy Reactions Criticality Noted Date Comments Lisinopril Angioedema High 06/15/2018 Swelling of lips and cheeks, 2018 Medications lrrpmbli-iqklqbay-g errous fum (MULTI VITAMIN) 9 mg iron/15 [...] 100 mg 24 hr tabletIndications:A therosclerosis of [place] coronary artery of [place] heart without angina pectoris,Essential hypertension TAKE 1 TABLET DAILY 90 tablet 1 4 Active atorvastatin (LIPITOR) 40 mg tabletIndications:A therosclerosis of [place] coronary artery of [place] heart without angina pectoris,Mixed hyperlipidemia TAKE 1 TABLET DAILY 90 tablet 5 Active Active Problems Problem Noted Date Diagnosed Date 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 Assessment & Plan (06/27/2017 4:47 PM ENGRAVER APPRENTICE DECORATIVE): Due to presence of synovitis and effusions in his MCPs I suspect he has overlap with an inflammatory arthritis such as spondyloarthropathy or seronegative RA in addition to his gout. Discussed beginning leflunomide 20mg daily as this may confer benefits for both processes. Reviewed risks and benefits. Labs today and f/u 1 month White coat syndrome with hypertension 06/17/2017 half-way use of drug 05/22/2017 Assessment & Plan (02/04/2018 9:53 AM CDT): Will continue to monitor the patient with routine labs. Assessment & Plan (11/03/2017 10:50 AM CDT): Will continue to monitor the patient with routine labs. Assessment & Plan (09/16/2017 10:20 AM CDT): Will continue to monitor the patient with routine labs. Assessment & Plan (05/22/2017 12:27 PM ENGRAVER APPRENTICE DECORATIVE): Will continue to monitor the patient with [...] 4.9. Assessment & Plan (06/27/2017 1:20 PM ENGRAVER APPRENTICE DECORATIVE): Recent L hand u/s shows mild synovial [...] 4.9. Assessment & Plan (05/22/2017 12:27 PM ENGRAVER APPRENTICE DECORATIVE): His xrays show degenerative changes at 2,3 [...] Overview (08/23/2016): PURE HYPERCHOLESTEROLEM Coronary arteriosclerosis in [place] artery 02/02 Overview (03/14/2017): CRNRY ATHRSCL NATVE VSSL 1994 IMI and RCA stent 2014: Negative treadmill stress test. Assessment & Plan (11/28/2016 11:24 AM CDT): [place] and stent in 1994 Resolved Problems Problem [...] pcp and sees cardiology due to hx [place] Social History Tobacco Use Types Packs/Day Years Used Date Smoking Tobacco: Former Smokeless Tobacco: Never Tobacco Cessation:Counseling Given: Not Answered Alcohol Use Standard Drinks/Week Comments Yes 0 (1 standard drink = 0.6 oz pur e alcohol) Sex and Gender Information Value Date Recorded Sex Assigned at Not on file Legal Sex Male 9:10 AM ENGRAVER APPRENTICE DECORATIVE Gender Identity Male 06/10/2021 1:01 PM ENGRAVER APPRENTICE DECORATIVE Sexual Orientation Not on file Last Filed Vital Signs Vital Sign Reading Time Taken Comments Blood Pressure 142/82 07/07/2023 9:59 AM ENGRAVER APPRENTICE DECORATIVE Pulse 59 07/07/2023 9:59 AM ENGRAVER APPRENTICE DECORATIVE Temperature 36.3 C (97.3 F) 10/10/2017 10:33 AM CDT Respiratory Rate 20 10/10/2017 10:55 AM CDT Oxygen Saturation 99% 07/07/2023 9:59 AM ENGRAVER APPRENTICE DECORATIVE Inhaled Oxygen Concentration - - Weight 89.4 kg (197 lb) 07/07/2023 9:59 AM ENGRAVER APPRENTICE DECORATIVE Height 175.3 cm (5' 9 ) 07/07/2023 9:59 AM ENGRAVER APPRENTICE DECORATIVE Body Mass Index 29.09 07/07/2023 9:59 AM ENGRAVER APPRENTICE DECORATIVE Plan of Treatment Not on file Medical Devices Implanted Type Area Wire Spooler Device Identifier Shelf Expiration Date Model / Serial / Lot Wire Fixation Preet [employer]ain[employer] L152 Mm Od1.6 Mm [place] 2 End Style 1 Sterile - [id number] Implanted:Qty : 1 on 10/10/2017 by Wellington Gordillo DPM at [facility] Right: Foot [employer] 01/15/2022 [id number] / / Implant Fixation L10 Mm Od3.4 Mm Odsec3 Mm Toe 2 Step Hammer - [id number] Implanted:Qty : 1 on 10/10/2017 by Wellington Gordillo DPM at [facility] Right: Foot [employer] [employer] -[id number] / / Insurance AETNA SENIOR SUPPLEMENT MEDICARE MEDICARE AETNA MEDICARE AETNA SENIOR SUPPLEMENT Care Teams R D Intern Relationship Specialty [place] [id number] [facility] [address] [place] [address] PCP - General Internal Medicine 06/24/22 [place] [id number] [facility] [address] [place] [address] Rheumatology 12/17/16
--- OUTSIDE RECORDS SUMMARY | 2024-06-28 09:36 | XMS_ITS | Clinical Summary ---
Author Organization [facility] [employer] Address [address] [place] [address] Care Team Providers Care Laser Specialist Name Role Phone Unavailable Primary Care Provider Unavailabl e Source Comments [facility],non-owned Affiliates and Associated Physician Practices is amultiple site organization consisting of ambulatory clinics and hospital sitesin [place], [place], [place] and [place]. This disclosure is being madepursuant to the Care Everywhere program and may not contain all information available regarding this patient. Last updated 18.[facility] [employer] Social History Tobacco Use Types Packs/Day Years Used Date Smoking Tobacco: Never Assessed Sex and Gender Information Value Date Recorded Sex Assigned at Not on file Gender Identity Not on file Sexual Orientation Not on file Plan of Treatment Health Maintenance Due Date Last Done Comments COLOGUARD (AGES 45-75) - COL ON CA SCREENING 1950 COLON MONITORING 1950 COLONOSCOPY - COLON CA SCREENING 1949 CT COLONOGRAPHY - COLON CA SCREENING 1950 Colorectal Cancer Screening 1950 FIT - COLON CA SCREENING 1950 FLEX SIG - COLON CA SCREENING 1950 LIPID TESTING 1950 MEDICARE AWV 12 MONTHS 1950 HEPATITIS C SCREENING 11/16/1967 DTAP/TDAP/TD VACCINES (1 - Tdap) 1968 PNEUMOCOCCAL VACCINE 50+ (1 of 1 - PCV) 11/21/1999 ZOSTER VACCINE (1 of 2) 11/21/1999 COVID-19 VACCINE ( - 2023-2 5 season) 2024 INFLUENZA VACCINE (#1) 2024 DEPRESSION SCREENING 05/19/2024 Respiratory Syncytial Virus (RSV) Vaccine Pt: or over 60 yrs (1 - 1-dose 75+ series) 2024 HEPATITIS B VACCINE Aged Out No longe r eligible based on patient's age to complete this topic HIB VACCINE Aged Out No longer eligi ble based on patient's age to complete this topic HPV VACCINE Aged Out No longer eligi ble based on patient's age to complete this topic MENINGOCOCCAL (Group B) VACCINE Aged Out No longer eligible based on patient's age to complete this topic MENINGOCOCCAL VACCINE Aged Out No rob yenifer eligible based on patient's age to complete this topic
--- OUTSIDE RECORDS SUMMARY | 2024-06-28 09:36 | XMS_ITS | Referral Summary ---
Author Organization [facility] Address [address] [place] [address] Care Team Providers Care Instructor Apparel Manufacture Name Role Phone Unavailable Primary Care Provider Unavailabl e Source Comments [facility],non-[facility] Affiliates and Associated Physician Practices is amultiple site organization consisting of ambulatory clinics and hospital sitesin [place], [place], [place] and [place]. This disclosure is being madepursuant to the Care Everywhere program and may not contain all information available regarding this patient. Last updated 18.[facility] [employer] Social History Tobacco Use Types Packs/Day Years Used Date Smoking Tobacco: Never Assessed Sex and Gender Information Value Date Recorded Sex Assigned at Not on file Gender Identity Not on file Sexual Orientation Not on file Plan of Treatment Not on file Martir Keene Personal/Family Self 1950 ([place]) [address] [place] [address]
== END 2024-06-28 09:11 | disposition home or self-care (01) ==
LOC: CHSIMG 09:12
PROVIDERS: PCP Internal Medicine; Visit Provider Internal Medicine
DX: J32.9 Chronic sinusitis, unspecified (principal)
CPT/HCPCS: 70220

== ENCOUNTER 2024-06-30 13:59 | Outpatient (CLI) | payer MEDICARE, SELFPAY ==
--- NOTE | ~2024-06-30 | CT_ITS ---
EXAMINATION: CT sinus wo con DATE: 06/30/2024 14:21 INDICATION: Chronic sinusitis. TECHNIQUE: Computed tomography (CT) of the paranasal sinuses was performed without intravenous contra st. Iterative reconstruction technique was employed. The dose-length product was 301.30 mGy-cm. COMPARISON: Sinuses radiographs 06/28/2024 FINDINGS: There is mild mucosal thickening in the frontal and ethmoid sinuses. The sphenoid sinuses a re clear. There is mild mucosal thickening in the maxillary sinuses. There is leftward deviation of p osterior nasal septum with a left lateral spur. There are bilateral Sridevi cells. The ostiomeatal uni ts are patent. IMPRESSION: 1. Mild mucosal thickening in the paranasal sinuses. 2. Leftward deviation of posterior nasal septum with a left lateral spur. Reviewed, dictated and finalized at location A. TH OUTREACH WORKER
--- OUTSIDE RECORDS SUMMARY | 2024-06-30 14:05 | XMS_ITS | Referral Summary ---
Author Organization [facility] Address [address] [place] [address] Care Team Providers Care Livestock Judging Coach Name Role Phone Unavailable Primary Care Provider Unavailabl e Source Comments [facility],non-[facility] Affiliates and Associated Physician Practices is amultiple site organization consisting of ambulatory clinics and hospital sitesin [place], [place], [place] and [place]. This disclosure is being madepursuant to the Care Everywhere program and may not contain all information available regarding this patient. Last updated 18.[facility] [employer] Social History Tobacco Use Types Packs/Day Years Used Date Smoking Tobacco: Never Assessed Sex and Gender Information Value Date Recorded Sex Assigned at Not on file Gender Identity Not on file Sexual Orientation Not on file Plan of Treatment Not on file Martir Keene Personal/Family Self 1950 ([place]) [address] [place] [address]
--- OUTSIDE RECORDS SUMMARY | 2024-06-30 14:05 | XMS_ITS | Clinical Summary ---
Author Organization [facility] Address [address] [place] [phone] Phone Care Team Providers Care Freight Car Loader Name Role Phone Vernell Kapoor MD Unavailable Josue Lemon MD Primary Care Provider Allergies Active Allergy Reactions Criticality Noted Date Comments Lisinopril Angioedema High 06/15/2018 Swelling of lips and cheeks, 2018 Medications xritniht-vbvktuyx-b errous fum (MULTI VITAMIN) 9 mg iron/15 [...] 100 mg 24 hr tabletIndications:A therosclerosis of [place] coronary artery of [place] heart without angina pectoris,Essential hypertension TAKE 1 TABLET DAILY 90 tablet 1 4 Active atorvastatin (LIPITOR) 40 mg tabletIndications:A therosclerosis of [place] coronary artery of [place] heart without angina pectoris,Mixed hyperlipidemia TAKE 1 TABLET DAILY 90 tablet 5 Active Active Problems Problem Noted Date Diagnosed Date 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 Assessment & Plan (06/27/2017 4:47 PM FIELD MACHINIST): Due to presence of synovitis and effusions in his MCPs I suspect he has overlap with an inflammatory arthritis such as spondyloarthropathy or seronegative RA in addition to his gout. Discussed beginning leflunomide 20mg daily as this may confer benefits for both processes. Reviewed risks and benefits. Labs today and f/u 1 month White coat syndrome with hypertension 06/17/2017 [facility] use of drug 05/22/2017 Assessment & Plan (02/04/2018 9:53 AM CDT): Will continue to monitor the patient with routine labs. Assessment & Plan (11/03/2017 10:50 AM CDT): Will continue to monitor the patient with routine labs. Assessment & Plan (09/16/2017 10:20 AM CDT): Will continue to monitor the patient with routine labs. Assessment & Plan (05/22/2017 12:27 PM FIELD MACHINIST): Will continue to monitor the patient with [...] 4.9. Assessment & Plan (06/27/2017 1:20 PM FIELD MACHINIST): Recent L hand u/s shows mild synovial [...] 4.9. Assessment & Plan (05/22/2017 12:27 PM FIELD MACHINIST): His xrays show degenerative changes at 2,3 [...] Overview (08/23/2016): PURE HYPERCHOLESTEROLEM Coronary arteriosclerosis in [place] artery 02/02 Overview (03/14/2017): CRNRY ATHRSCL NATVE VSSL 1994 IMI and RCA stent 2014: Negative treadmill stress test. Assessment & Plan (11/28/2016 11:24 AM CDT): [place] and stent in 1994 Resolved Problems Problem [...] pcp and sees cardiology due to hx [place] Surgical History Surgery Date Site/Laterality Comments INGUINAL [...] on file Legal Sex Male 9:10 AM FIELD MACHINIST Gender Identity Male 06/10/2021 1:01 PM FIELD MACHINIST Sexual Orientation Not on file Obstetrics History Last Filed Vital Signs Vital Sign Reading Time Taken Comments Blood Pressure 142/82 07/07/2023 9:59 AM FIELD MACHINIST Pulse 59 07/07/2023 9:59 AM FIELD MACHINIST Temperature 36.3 C (97.3 F) 10/10/2017 10:33 AM CDT Respiratory Rate 20 10/10/2017 10:55 AM CDT Oxygen Saturation 99% 07/07/2023 9:59 AM FIELD MACHINIST Inhaled Oxygen Concentration - - Weight 89.4 kg (197 lb) 07/07/2023 9:59 AM FIELD MACHINIST Height 175.3 cm (5' 9 ) 07/07/2023 9:59 AM FIELD MACHINIST Body Mass Index 29.09 07/07/2023 9:59 AM FIELD MACHINIST Plan of Treatment Health Maintenance Due Date [...] 02/03/2023, 12/02/2022 Medical Devices Implanted Type Area Roof Fixer Device Identifier Shelf Expiration Date Model / Serial / Lot Wire Fixation Preet [employer]ain[employer] L152 Mm Od1.6 Mm [place] 2 End Style 1 Sterile - [id number] Implanted:Qty : 1 on 10/10/2017 by Wellington Gordillo DPM at [facility] Right: Foot [employer] 01/15/2022 [id number] / / Implant Fixation L10 Mm Od3.4 Mm Odsec3 Mm Toe 2 Step Hammer - [id number] Implanted:Qty : 1 on 10/10/2017 by Wellington Gordillo DPM at [facility] Right: Foot [employer] [id number] / / Insurance [facility] MEDICARE MEDICARE AETNA MEDICARE AETNA SENIOR SUPPLEMENT Care Teams Freight Car Loader Relationship Specialty [place] [address] [facility] [address] [place] [address] PCP - General Internal Medicine 06/24/22 [place] [address] [facility] [address] [place] [address] Rheumatology 12/17/16
--- OUTSIDE RECORDS SUMMARY | 2024-06-30 14:05 | XMS_ITS | Clinical Summary ---
Author Organization [facility] [employer] Address [address] [place] [address] Care Team Providers Care Grain Blender Name Role Phone Unavailable Primary Care Provider Unavailabl e Source Comments [facility],non-owned Affiliates and Associated Physician Practices is amultiple site organization consisting of ambulatory clinics and hospital sitesin [place], [place] and [place]. This disclosure is being madepursuant to the Care Everywhere program and may not contain all information available regarding this patient. Last updated 18.[facility] [employer] Social History Tobacco Use Types Packs/Day Years [...]
--- OUTSIDE RECORDS SUMMARY | 2024-06-30 14:05 | XMS_ITS | Referral Summary ---
Author Organization [facility] [employer] Address [address] [place] [id number] Phone Care Team Providers Care Residence Life Coordinator Name Role Phone Vernell Kapoor MD Unavailable Josue Lemon MD Primary Care Provider [phone] Allergies Active Allergy Reactions Criticality Noted Date Comments Lisinopril Angioedema High 06/15/2018 Swelling of lips and cheeks, 2018 Medications dlnoqhax-uagdyyrq-l errous fum (MULTI VITAMIN) 9 mg iron/15 [...] 100 mg 24 hr tabletIndications:A therosclerosis of [place] coronary artery of [place] heart without angina pectoris,Essential hypertension TAKE 1 TABLET DAILY 90 tablet 1 4 Active atorvastatin (LIPITOR) 40 mg tabletIndications:A therosclerosis of [place] coronary artery of [place] heart without angina pectoris,Mixed hyperlipidemia TAKE 1 TABLET DAILY 90 tablet 5 Active Active Problems Problem Noted Date Diagnosed Date Inflammatory polyarthropathy ([facility]) 8 Assessment & Plan (02/04/2018 9:53 AM [...] biologic. Assessment & Plan (06/27/2017 4:47 PM MODEL MAKER): Due to presence of synovitis and effusions in his MCPs I suspect he has overlap with an inflammatory arthritis such as spondyloarthropathy or seronegative RA in addition to his gout. Discussed beginning leflunomide 20mg daily as this may confer benefits for both processes. Reviewed risks and benefits. Labs today and f/u 1 month White coat syndrome with hypertension 06/17/2017 [facility] use of drug 05/22/2017 Assessment & Plan (02/04/2018 9:53 AM CDT): Will continue to monitor the patient with routine labs. Assessment & Plan (11/03/2017 10:50 AM CDT): Will continue to monitor the patient with routine labs. Assessment & Plan (09/16/2017 10:20 AM CDT): Will continue to monitor the patient with routine labs. Assessment & Plan (05/22/2017 12:27 PM MODEL MAKER): Will continue to monitor the patient with [...] 4.9. Assessment & Plan (06/27/2017 1:20 PM MODEL MAKER): Recent L hand u/s shows mild synovial [...] 4.9. Assessment & Plan (05/22/2017 12:27 PM MODEL MAKER): His xrays show degenerative changes at 2,3 [...] Overview (08/23/2016): PURE HYPERCHOLESTEROLEM Coronary arteriosclerosis in [place] artery 02/02 Overview (03/14/2017): CRNRY ATHRSCL NATVE VSSL 1994 IMI and RCA stent 2014: Negative treadmill stress test. Assessment & Plan (11/28/2016 11:24 AM CDT): UT and stent in 1994 Resolved Problems Problem [...] pcp and sees cardiology due to hx [place] Social History Tobacco Use Types Packs/Day Years Used Date Smoking Tobacco: Former Smokeless Tobacco: Never Tobacco Cessation:Counseling Given: Not Answered Alcohol Use Standard Drinks/Week Comments Yes 0 (1 standard drink = 0.6 oz pur e alcohol) Sex and Gender Information Value Date Recorded Sex Assigned at Not on file Legal Sex Male 9:10 AM MODEL MAKER Gender Identity Male 06/10/2021 1:01 PM MODEL MAKER Sexual Orientation Not on file Last Filed Vital Signs Vital Sign Reading Time Taken Comments Blood Pressure 142/82 07/07/2023 9:59 AM MODEL MAKER Pulse 59 07/07/2023 9:59 AM MODEL MAKER Temperature 36.3 C (97.3 F) 10/10/2017 10:33 AM CDT Respiratory Rate 20 10/10/2017 10:55 AM CDT Oxygen Saturation 99% 07/07/2023 9:59 AM MODEL MAKER Inhaled Oxygen Concentration - - Weight 89.4 kg (197 lb) 07/07/2023 9:59 AM MODEL MAKER Height 175.3 cm (5' 9 ) 07/07/2023 9:59 AM MODEL MAKER Body Mass Index 29.09 07/07/2023 9:59 AM MODEL MAKER Plan of Treatment Not on file Medical Devices Implanted Type Area Lip Cutter And Scorer Device Identifier Shelf Expiration Date Model / Serial / Lot Wire Fixation Preet [employer]ain[employer] Steel L152 Mm Od1.6 Mm [place] 2 End Style 1 Sterile - [id number] Implanted:Qty : 1 on 10/10/2017 by Wellington Gordillo DPM at [facility] Right: Foot [employer] 01/15/2022 [id number] / / Implant Fixation L10 Mm Od3.4 Mm Odsec3 Mm Toe 2 Step Hammer - [id number] Implanted:Qty : 1 on 10/10/2017 by Wellington Gordillo DPM at [facility] Right: Foot [employer] [facility] [facility] [employer] -[id number] / / Insurance AETNA SENIOR SUPPLEMENT MEDICARE MEDICARE AETNA MEDICARE AETNA SENIOR SUPPLEMENT Care Teams Residence Life Coordinator Relationship Specialty [place] [id number] [facility] [address] [place] [address] PCP - General Internal Medicine 06/24/22 [place] [address] [facility] [address] [place] [address] Rheumatology 12/17/16
--- OUTSIDE RECORDS SUMMARY | 2024-06-30 14:05 | XMS_ITS | Patient Health Summary ---
Author Organization [facility] Address [address] [place] [address] Care Team Providers Care Dry House Wheeler Name Role Phone Unavailable Primary Care Provider Unavailabl e Note from [facility],non-owned Affiliates and Associated Physician Practices is amultiple site organization consisting of ambulatory clinics and hospital sitesin [place], [place] and [place]. This disclosure is being madepursuant to the Care Everywhere program and may not contain all information available regarding this patient. Last updated 18.[facility] [employer] Social History Tobacco Use Types Packs/Day Years [...] Region Laterality Modality Pelvis, Lower Extremity [facility] 11/28/2016 12:5 5 PM CDT Impressions [...]
== END 2024-06-30 14:00 | disposition home or self-care (01) ==
LOC: CHSIMG 14:01
PROVIDERS: PCP Internal Medicine; Visit Provider Internal Medicine
DX: J32.9 Chronic sinusitis, unspecified (principal); J34.2 Deviated nasal septum
CPT/HCPCS: 70486

== ENCOUNTER 2025-03-23 09:07 | Outpatient (CLI) | payer MEDICARE, SELFPAY ==
[2025-03-23 09:28] LABS: Add Urine Microscopic? NO; Appearance Urine Clear (Clear); Glucose Urine UA Negative (Negative); Leukocyte Esterase Ur Negative (Negative); Nitrate Urine Negative (Negative); Specific Grav Ur 1.010 (1.010-1.020)
[2025-03-23 09:29] LABS: Hematocrit 38.8 % (37.0-46.0); Hemoglobin 13.1 g/dL (12.4-15.3); Immature Platelet Fraction Pct 7.2 % (1.0-7.0); Mean Corpuscular HGB Conc 33.8 g/dL (32-36); Mean Corpuscular Hemoglobin 32.3 pg (27.0-31.0); Mean Corpuscular Volume 95.6 fL (78.0-102.0); Platelet Count Result 94 K/mm3 (150-420); Red Blood Count 4.06 M/mm3 (4.70-6.10); White Blood Count 4.2 K/mm3 (4.8-10.8)
--- OUTSIDE RECORDS SUMMARY | 2025-03-23 09:43 | XMS_ITS | Clinical Summary ---
Author Organization [facility] [employer] Address [address] [place] [phone] Phone Care Team Providers Care Automatic Profile Sander Operator Name Role Phone Vernell Kapoor MD Unavailable Josue Lemon MD Primary Care Provider [phone] Allergies Active Allergy Reactions Criticality Noted Date Comments Lisinopril Angioedema High 06/15/2018 Swelling of lips and cheeks, 2018 Medications yymrqhjy-rmfmirjk-m errous fum (MULTI VITAMIN) 9 mg iron/15 [...] 9 Active amLODIPine (NORVASC) 10 mg tablet TAKE 1 TABLET DAILY 90 tablet 3 5 Active atorvastatin (LIPITOR) 40 mg tabletIndications:A therosclerosis of [place] coronary artery of [place] heart without angina pectoris,Mixed hyperlipidemia TAKE 1 TABLET DAILY 90 tablet 3 5 Active losartan-hydrochlor othiazide (HYZAAR) 100-25 mg per tablet TAKE 1 TABLET DAILY 90 tablet 2 5 Active metoprolol XL (TOPROL-XL) 100 mg 24 hr tabletIndications:A therosclerosis of [place] coronary artery of [place] heart without angina pectoris,Essential hypertension TAKE 1 TABLET DAILY 90 tablet 2 5 Active Active Problems Problem Noted Date Diagnosed Date Inflammatory polyarthropathy 06/27/2017 Assessment & Plan (02/04/2018 9:53 AM CDT): [...] biologic. Assessment & Plan (06/27/2017 4:47 PM TRANSIT MIX OPERATOR): Due to presence of synovitis and effusions in his MCPs I suspect he has overlap with an inflammatory arthritis such as spondyloarthropathy or seronegative RA in addition to his gout. Discussed beginning leflunomide 20mg daily as this may confer benefits for both processes. Reviewed risks and benefits. Labs today and f/u 1 month White coat syndrome with hypertension 06/17/2017 long term care administrator use of drug 05/22/2017 Assessment & Plan (02/04/2018 9:53 AM CDT): Will continue to monitor the patient with routine labs. Assessment & Plan (11/03/2017 10:50 AM CDT): Will continue to monitor the patient with routine labs. Assessment & Plan (09/16/2017 10:20 AM CDT): Will continue to monitor the patient with routine labs. Assessment & Plan (05/22/2017 12:27 PM TRANSIT MIX OPERATOR): Will continue to monitor the patient with [...] 4.9. Assessment & Plan (06/27/2017 1:20 PM TRANSIT MIX OPERATOR): Recent L hand u/s shows mild synovial [...] 4.9. Assessment & Plan (05/22/2017 12:27 PM TRANSIT MIX OPERATOR): His xrays show degenerative changes at 2,3 [...] hypercholesterolemia 06/07/2013 Overview (08/23/2016): PURE HYPERCHOLESTEROLEM Coronary artery disease invo lving [place] coronary artery of [place] heart without angina pectoris 02/02/2013 Overview (03/14/2017): CRNRY ATHRSCL NATVE VSSL 1994 IMI and RCA stent 2014: Negative treadmill stress test. Assessment & Plan (11/28/2016 11:24 AM CDT): ID and stent in 1994 Resolved Problems Problem [...] pcp and sees cardiology due to hx ID Surgical History Surgery Date Site/Laterality Comments INGUINAL [...] on file Legal Sex Male 9:10 AM TRANSIT MIX OPERATOR Gender Identity Male 06/10/2021 1:01 PM TRANSIT MIX OPERATOR Sexual Orientation Not on file Last Filed Vital Signs Vital Sign Reading Time Taken Comments Blood Pressure 138/70 07/08/2024 2:48 PM TRANSIT MIX OPERATOR Pulse 65 07/08/2024 2:48 PM TRANSIT MIX OPERATOR Temperature 36.3 C (97.3 F) 10/10/2017 10:33 AM CDT Respiratory Rate 20 10/10/2017 10:55 AM CDT Oxygen Saturation 99% 07/08/2024 2:48 PM TRANSIT MIX OPERATOR Inhaled Oxygen Concentration - - Weight 89.1 kg (196 lb 6.4 oz) 07/08/2024 2:48 P M TRANSIT MIX OPERATOR Height 175.3 cm (5' 9) 07/08/2024 2:48 PM TRANSIT MIX OPERATOR Body Mass Index 29 07/08/2024 2:48 PM TRANSIT MIX OPERATOR Plan of Treatment Health Maintenance Due Date Last Done Comments Colon Cancer Screening-Colonoscopy 1950 Depression Screening 1950 Fall Risk Assessment 1950 Hepatitis C Screening 1950 Hepatitis B Screening 11/21/1967 Abdominal Aortic Aneurysm (AAA) Screen 2014 Well Visit 65+ 2014 Covid-19 Vaccine ( season) 2025, 06/21/2020 Influenza Vaccine (#1) 2025 DTaP/Tdap/Td Vaccine (2 - Td or Tdap) 02/03/2033 Pneumococcal vaccine 65+ Completed 12/02/2022 Zoster Vaccine Completed 02/03/2023, 12/02/2022 Medical Devices Implanted Type Area Night Manager Device Identifier Shelf Expiration Date Model / Serial / Lot Wire Fixation Preet [employer]ain[employer] Steel L152 Mm Od1.6 Mm [place] 2 End Style 1 Sterile - [id number] Implanted:Qty : 1 on 10/10/2017 by Wellington Gordillo DPM at [facility] Right: Foot [employer] 01/15/2022 [id number] / / Implant Fixation L10 Mm Od3.4 Mm Odsec3 Mm Toe 2 Step Hammer - [id number] Implanted:Qty : 1 on 10/10/2017 by Wellington Gordillo DPM at [facility] Right: Foot [employer] [id number] / / Insurance MEDICARE MEDICARE AETNA MEDICARE AETNA SENIOR SUPPLEMENT Care Teams Automatic Profile Sander Operator Relationship Specialty [place] [address] [facility] [address] [place] [address] PCP - General Internal Medicine 06/24/22 [place] [address] [facility] [address] [place] [address] Rheumatology 12/17/16
--- OUTSIDE RECORDS SUMMARY | 2025-03-23 09:44 | XMS_ITS | Clinical Summary ---
Author Organization [facility] Address [address] [place] [address] Care Team Providers Care Operating Room Specialist Name Role Phone Unavailable Primary Care Provider Unavailabl e Source Comments [facility],non-owned Affiliates and Associated Physician Practices is amultiple site organization consisting of ambulatory clinics and hospital sitesin [place], [place], [place] and [place]. This disclosure is being madepursuant to the Care Everywhere program and may not contain all information available regarding this patient. Last updated 18.[facility] [employer] Social History Tobacco Use Types Packs/Day Years Used Date Smoking Tobacco: Never Assessed Sex and Gender Information Value Date Recorded Sex Assigned at Not on file Legal Sex Male 12:28 PM CDT Gender Identity Not on file Sexual Orientation [...] 11/21/1999 ZOSTER VACCINE (1 of 2) 11/21/1999 DEPRESSION SCREENING 05/19/2024 Respiratory Syncytial Virus (RSV) Vaccine Pt: or over 60 yrs (1 - 1-dose 75+ series) 2024 COVID-19 VACCINE ( 2023-2 5 season) 2025 INFLUENZA VACCINE (#1) 2025 HEPATITIS B VACCINE Aged Out No longe r eligible based on patient's age to complete this topic HIB VACCINE Aged Out No longer eligi ble based on patient's age to complete this topic HPV VACCINE Aged Out No longer eligi ble based on patient's age to complete this topic MENINGOCOCCAL (Group B) VACC INE SHARED DECISION-MAKING Aged Out No longer eligibl e based on patient's age to complete this topic MENINGOCOCCAL GROUPS A/C/Y/W VACCINE Aged Out No longer eligible b ased on patient's age to complete this topic Insurance MEDICARE MEDICARE AETNA AETNA SELF PAY NO INSURANCE Member Subscriber Plan / Payer (Ef fective for All Dates) Name:Martir Johnson Member ID:Not on file Relation to Subscriber:Not on file Name:DEVINGIOMARTIR MICHEL Subscriber ID:Not on file (Home) Address: [address] [place] [phone] Payer ID:Not on file Group ID:Not on file Type:Self Pay Address: [place], [place]
[2025-03-23 10:00] LABS: Alanine Aminotransferase 29 U/L (6-50); Albumin Level 4.6 g/dL (3.5-5.1); Alkaline Phosphatase 89 U/L (38-126); Anion Gap 7 mmol/L (4-12); Aspartate Amino Transferase 38 U/L (17-59); Bilirubin,Total 2.5 mg/dL (0.2-1.3); Blood Urea Nitrogen 20 mg/dL (9-20); Calcium 9.3 mg/dL (8.4-10.2); Carbon Dioxide 30 mmol/L (22-30); Chloride 103 mmol/L (98-107); Cholesterol 123 mg/dL (0-200); Estimated Glomerular Filt Rate > 60; Glucose 103 mg/dL (65-110); HDL Direct 64 mg/dL; Osmolality Calculated 292 mOsm/kg (285-295); Potassium 4.2 mmol/L (3.4-5.0); Sodium 140 mmol/L (137-145); Total Protein 7.1 g/dL (6.3-8.2); Triglycerides 107 mg/dL (<150); Uric Acid 4.1 mg/dL (3.5-8.5)
[2025-03-23 10:31] LABS: Thyroid Stimulating Hormone 2.310 uIU/mL (0.465-4.680)
== END 2025-03-23 09:08 | disposition home or self-care (01) ==
LOC: CHSLAB 09:12
PROVIDERS: PCP Internal Medicine; Visit Provider Internal Medicine
DX: M10.9 Gout, unspecified (principal); I10 Essential (primary) hypertension; E78.5 Hyperlipidemia, unspecified
CPT/HCPCS: 36415; 80053; 80061; 81003; 84443; 84550; 85027; 85055

== ENCOUNTER 2025-04-06 08:17 | Outpatient (CLI) | payer MEDICARE, SELFPAY ==
--- NOTE | 2025-04-06 | CONSULT_PTH ---
PATIENT: Martir Keene LOC: [facility]#:[id number] AGE/SX: 74/M ROOM: RE04/06/[address]: Josue Lemon MD : 1950 BED: DIS: 04/06/2025 SPEC #: [id number] RECD: 04/06/25 08:35 STATUS: RAÚL REChel #: [id number] MAINOR: 04/06/25 00:[address]: Josue Lemon DEPT: [facility] Consult RECD BY: Yeys Rajput MLT, ([facility]) Tissues: A - Peripheral Smear Procedures: Hematology Consult
[2025-04-06 08:33] LABS: Hematocrit 38.3 % (37.0-46.0); Hemoglobin 13.0 g/dL (12.4-15.3); Immature Granulocyte Percent A 0.5 % (0.0-0.0); Lymphocytes Absolute Auto 1.28 K/mm3 (1.10-4.50); Mean Corpuscular HGB Conc 33.9 g/dL (32-36); Mean Corpuscular Hemoglobin 32.1 pg (27.0-31.0); Mean Corpuscular Volume 94.6 fL (78.0-102.0); Nucleated Red Blood Cells Absolute Auto 0.00 K/mm3 (0.00-0.00); Nucleated Red Blood Cells Perc 0.0 % (0-0.0); Platelet Count Result 145 K/mm3 (150-420); Red Blood Count 4.05 M/mm3 (4.70-6.10); White Blood Count 4.0 K/mm3 (4.8-10.8)
== END 2025-04-06 08:18 | disposition home or self-care (01) ==
PROVIDERS: PCP Internal Medicine; Visit Provider Internal Medicine
DX: D72.819 Decreased white blood cell count, unspecified (principal); D69.6 Thrombocytopenia, unspecified
CPT/HCPCS: 36415; 85025